=== PATIENT | male | born 1940 | race Caucasian/White ===

== ENCOUNTER 2024-02-25 10:54 | Inpatient (IN) | payer MEDICARE, SELFPAY ==
[2024-02-25] VITALS (24 sets, daily range): BP systolic 77–160; BP diastolic 49–90; PULSE 72–115; RESP 16–24; TEMP 36.1–36.6; O2SAT 94–100; BMI 22.2; BMI 21.2
--- NOTE | 2024-02-25 11:28 | XR_ITS ---
WS: [email or web address] Exam: XR foot LT min 3V* [id number] Date/Time of Exam: 02/25/2024 11:43 AM Reason For Exam: infection - osteomyelitis The second through the fifth toes have been amputated. There has been amputation of the distal fifth metatarsal. Extensive bone destruction involving the distal second third and fourth metatarsals and a lso most likely the distal first metatarsal. There is demineralization of bone involving the phalange s of the great toe also suspicious for osteomyelitis. Extensive soft tissue gas about the foot sugges t infection with gas-forming bacteria. Soft tissue swelling of the foot. Bandaging material noted abo ut the foot. XR/XR foot LT min 3V* [id number] IMPRESSION: 1. Osseous destruction involving the first ray as well as the distal second thi rd and fourth metatarsals almost surely representing acute osteomyelitis. There are also multiple pockets of gas in the soft tissues of the foot with soft tis wanda edema suggesting infection by gas-forming bacteria. Amputations of the foot as detailed above.
--- NOTE | 2024-02-25 11:31 | XR_ITS ---
WS: [email or web address] Exam: XR chest 1V portable [id number] Date/Time of Exam: 02/25/2024 11:43 AM Reason For Exam: dyspnea/cough No priors. The lungs are clear and fully expanded. Normal cardiomediastinal silhouette. No pleural effusions. He aled LEFT clavicle fracture. XR/XR chest 1V portable [id number] IMPRESSION: 1. No acute cardiopulmonary finding.
--- NOTE | 2024-02-25 11:48 | ECG_ITS ---
[employer] Test Date: 2024-02-25 Pat Name: Jett Tom Department: Room: 268 Gender: Male Payroll Services Analyst: : 1940 Requested By: Donte Arndt Order Number: [id number] Kaden MD: Larry Oquendo M.D. Measurements Intervals [place] Rate: 102 P: 85 NV: 173 QRS: -57 QRSD: 123 T: 88 QT: 374 QTc: 489 Interpretive Statements SINUS TACHYCARDIA POSSIBLE RIGHT ATRIAL ENLARGEMENT [0.25mV P-WAVE] POSSIBLE LEFT ATRIAL ENLARGEMENT [-0.1mV P-WAVE IN V1/V2] POSSIBLE RIGHT VENTRICULAR CONDUCTION DELAY [RSR (QR) IN V1/V2] LEFT ANTERIOR FASCICULAR BLOCK [QRS AXIS <= -45, QR IN I, RS IN II] SEPTAL MYOCARDIAL INFARCTION , OF INDETERMINATE AGE [40+ ms Q WAVE IN V1/V2] No previous ECG available for comparison Electronically Signed On 02-26-2024 22:10:26 INSTRUCTIONAL ASSISTANT by Larry Oquendo M.D. [email or web address]
--- NOTE | 2024-02-25 12:34 | ED_ITS ---
HPI - Extremity Problem 2 General: Chief complaint: Extremity Injury, Lower Stated complaint: Left Foot problems Time Seen by Provider: 02/25/24 12:19 History of Present Illness: 84-year-old male presents to the emergen cy room with a foul-smelling left foot. He injured it several months ago became infected has not had any treatment. Overpowering the foul-smelling odor coming from the left foot there is a sock in place it was difficult to remove see description below. Patient denies any other symptoms at this time he denies abdominal pain or chest pain. He has chronic shortness of breath he is a lifelong smoker. He is mildly tachycardic no fever at the time of arrival. Associated symptoms: Deny chest pain, fever(s) or rash Related Data Home Medications Medication Instructions Recorded Confirmed No Known Home Medications 02/25/24 02/25/24 Allergies Allergy/AdvReac Type Severity Reaction Status Date / Time No Known Allergies Allergy Verified 02/25/24 11:14 Review of Systems 2 Const: Denies: fever(s) or chills Card: Denies: chest pain Resp: Denies: dyspnea GI: Denies: abdominal pain : Denies: dysuria, urinary frequency or urinary urgency Musc: Reports: other (Infected left foot with drainage); Denies: neck pain or back pain Skin/Breast: Denies: rash Physical Exam 2 Const: COMMON NORMALS: no acute distress GENERAL APPEARANCE: cooperative and comfortable ORIENTATION/CONSCIOUSNESS: Yes awake, Yes oriented to person, Yes oriented to place and Yes oriented to time HENMT: COMMON NORMALS: normocephalic, atraumatic and hearing grossly normal bilaterally HEAD & SCALP: normocephalic and atraumatic Resp: COMMON NORMALS: normal respiratory effort, No retractions, No use of accessory muscles and clear to auscultation bilaterally AUSCULTATION: clear to auscultation bilaterally Cardio: COMMON NORMALS: regular rhythm and No murmurs present (Cardio) R ATE: tachycardic RHYTHM: regular rhythm GI: COMMON NORMALS: Soft to palpation and No hepatosplenomegaly present A USCULTATION: Yes normoactive bowel sounds PALPATION: Yes Soft to palpation, No Tenderness to palpation present (GI), No Guarding due to palpation present (GI) and Yes No hepatosplenomegaly present Extremity: OTHER: Extremely foul-smelling left foot sock removed portion of the sock was unable to be removed in his embedded in the tissue. Several of the digits are missing is difficult to tell it appear to have been previously amputated much of the forefoot is destroyed there is tunneling and gangrenous lesions exiting the medial arch and the heel. Erythema and induration spreading proximally foul- smelling purulent bloody drainage noted from the left foot. Neuro: SENSORIUM/ORIENTATION: Yes oriented to person, Yes oriented to place and Yes oriented to time Skin: COMMON NORMALS: no rashes or lesions noted GENERAL SKIN EXAM: no rashes or lesions noted Course 2 Vital Signs: Vital signs: Vital Signs Temperature 97.0 F L 02/25/24 13:52 Pulse Rate 100 02/25/24 13:52 Respiratory Rate 18 02/25/24 13:52 Blood Pressure 160/90 02/25/24 13:52 Pulse Oximetry 100 02/25/24 13:52 Oxygen Delivery Me thod Room Air 02/25/24 13:52 MDM - Extremity (Nontraumatic) Medical Decision Making 84-year-old male presents emergency room as a septic. Patient has severely gangrenous foot extending throughout the entire foot with gas in the subcu space. There is purulent foul-smelling drainage from the foot patient is septic with lactic acid of 6.5 elevated white count. Glucose is elevated as well. Ketones negative ABG does not show acidosis there is a metabolic anion gap but I believe that is due to sepsis. Antibiotics initiated fluids given cultures done discussed with hospitalist will admit. Dr. Hyman has been consulted he is taking patient directly to surgery for amputation Lab Data I reviewed the patient's lab results. 02/25/24 12:33 02/25/24 12:33 Radiology Impressions Foot X-Ray 02/25/24 11:28 IMPRESSION: 1. Osseous destruction involving the first ray as well as the distal second third and fourth metatarsals almost surely representing acute osteomyelitis. There are also multiple pockets of gas in the soft tissues of the foot with soft tissue edema suggesting infection by gas-forming bacteria. Amputations of the foot as detailed above. Chest X-Ray 02/25/24 11:31 IMPRESSION: 1. No acute cardiopulmonary finding. Tibia/Fibula X-Ray 02/25/24 12:52 IMPRESSION: 1. Negative LEFT tibia and fibula. Laboratory Results WBC 12.38 10^3/uL (3.29-11.43) H 02/25/24 12:33 RBC 4.65 10^6/uL (3.85-5.65) 02/25/24 12:33 Hgb 12.50 g/dL (11.27-16.99) 02/25/24 12:33 Hct 39.4 % (37-53) 02/25/24 12:33 MCV 84.7 fl (82-101) 02/25/24 12:33 MCH 26.9 pg (27-33) L 02/25/24 12:33 MCHC 31.7 g/dL (30-55) 02/25/24 12:33 RDW 14.8 % (12.1-15.1) 02/25/24 12:33 Plt Count 339 10^3/cmm (157-399) 02/25/24 12:33 MPV 9.0 fL (7.4-10.4) 02/25/24 12:33 Neut % (Auto) 88.6 % 02/25/24 12:33 Lymph % (Auto) 5.1 % 02/25/24 12:33 Walton % (Auto) 4.0 % 02/25/24 12:33 Eos % (Auto) 0.2 % 02/25/24 12:33 Baso % (Auto) 0.2 % 02/25/24 12:33 Neut # (Auto) 10.96 10^3/uL (1.8-7.7) H 02/25/24 12:33 Lymph # (Auto) 0.6 10^3/uL (0.8-4.8) L 02/25/24 12:33 Walton # (Auto) 0.5 10^3/uL (0.2-0.9) 02/25/24 12:33 Eos # (Auto) 0.0 10^3/uL (0.0-0.8) 02/25/24 12:33 Baso # (Auto) 0.0 10^3/uL (0.0-0.1) 02/25/24 12:33 Nucleated RBC % (auto) 0 % 02/25/24 12:33 Nucleated RBCs # 0.0 /100WBC 02/25/24 12:33 ESR 47 mm/hr (0-10) H 02/25/24 12:33 Specimen Type Arterial 02/25/24 13:20 Sample Site Radial, right 02/25/24 13:20 ABG pH 7.46 (7.35-7.45) H 02/25/24 13:20 ABG pCO2 29.6 mmHg (35-45) L 02/25/24 13:20 ABG pO2 111.0 mmHg (80.0-100.0) H 02/25/24 13:20 ABG PO2/FiO2 Ratio 528 02/25/24 13:20 ABG HCO3 21.0 mmol/L (22-26) L 02/25/24 13:20 ABG O2 Saturation 98.8 02/25/24 13:20 ABG Base Excess -1.8 mmol/L (-2.0-2.0) 02/25/24 13:20 Ra Test Pos 02/25/24 13:20 A-a O2 Gradient 0.2 mmHg (5-10) L 02/25/24 13:20 Hematocrit 41.0 % (42-52) L 02/25/24 13:20 Hgb O2 Saturation 97.7 % (95-100) 02/25/24 13:20 Carboxyhemoglobin 0.9 %THgb (0.4-20.1) 02/25/24 13:20 Methemoglobin 0.2 % (0.4-1.5) L 02/25/24 13:20 Total Hemoglobin 13.4 g/dL (14-18) L 02/25/24 13:20 Sodium 133.0 mmol/L (131-143) 02/25/24 13:20 Potassium 3.8 mmol/L (3.5-5.0) 02/25/24 13:20 Glucose 233.0 mg/dL (70-115) H 02/25/24 13:20 Ionized Calcium 1.2 mmol/L (1.1-1.4) 02/25/24 13:20 O2 Delivery Device Room air 02/25/24 13:20 FiO2 21.0 % 02/25/24 13:20 Booster Pump Operator ID glc 02/25/24 13:20 Sodium 130 mmol/L (136-145) L 02/25/24 12:33 Potassium 4.8 mmol/L (3.5-5.1) 02/25/24 12:33 Chloride 88 mmol/L (98-107) L 02/25/24 12:33 Carbon Dioxide 20 mmol/L (22-29) L 02/25/24 12:33 Anion Gap 26.8 (5-19) H 02/25/24 12:33 BUN 38 mg/dL (8-23) H 02/25/24 12:33 Creatinine 1.2 mg/dL (0.7-1.2) 02/25/24 12:33 GFR Calculation Not Reportable 02/25/24 12:33 Glucose 266 mg/dL (65-115) H 02/25/24 12:33 Calculated Osmolality 288 mOsm/kg (285-295) 02/25/24 12:33 Lactic Acid 6.5 mmol/L (0.5-2.2) H* 02/25/24 12:33 Calcium 10.1 mg/dL (8.5-10.5) 02/25/24 12:33 Total Bilirubin 1.0 mg/dL (0.15-1.2) 02/25/24 12:33 AST 8 U/L (0-40) 02/25/24 12:33 ALT 6 U/L (0-41) 02/25/24 12:33 Alkaline Phosphatase 126 U/L (40-130) 02/25/24 12:33 Creatine Kinase 23 U/L (39-308) L 02/25/24 12:33 C-Reactive Protein 155.8 mg/L (0.0-4.9) H 02/25/24 12:33 Total Protein 8.1 g/dL (6.6-8.7) 02/25/24 12:33 Albumin 3.5 g/dL (3.5-5.2) 02/25/24 12:33 Globulin 4.6 g/dL (1.3-4.6) 02/25/24 12:33 Lipase 12 U/L (13-60) L 02/25/24 12:33 Procalcitonin 0.32 ng/mL (0-0.5) 02/25/24 12:33 TSH 2.17 uIU/mL (0.27-4.20) 02/25/24 12:33 Serum Ketones Negative (Negative) 02/25/24 12:33 All radiology interpretation(s) finalized by discharge Discharge Plan Discharge Patient Disposition: Admitted As Inpatient Clinical Impression: Gangrene of left foot, Sepsis Condition: Stable Coding Level of Care Code ED Commercial Hvac Technician for Valentin Coronel
[2024-02-25 12:46] LABS: Basophils % 0.2 %; Eosinophils % 0.2 %; Hematocrit 39.4 % (37-53); Lymphocytes # 0.6 10^3/uL (0.8-4.8); Lymphocytes % 5.1 %; Mean Corpuscular HGB Conc 31.7 g/dL (30-55); Mean Corpuscular Hemoglobin 26.9 pg (27-33); Mean Corpuscular Volume 84.7 fl (82-101); Monocytes # 0.5 10^3/uL (0.2-0.9); Neutrophils # 10.96 10^3/uL (1.8-7.7); Neutrophils % 88.6 %; Nucleated Red Blood Cells % 0 %; Platelet Count 339 10^3/cmm (157-399); Red Blood Count 4.65 10^6/uL (3.85-5.65); Red Cell Distribution Width 14.8 % (12.1-15.1); White Blood Count 12.38 10^3/uL (3.29-11.43)
--- NOTE | 2024-02-25 12:52 | XR_ITS ---
WS: [id number] Exam: XR tibia fibula LT 2V [id number] Date/Time of Exam: 02/25/2024 1:10 PM Reason For Exam: osteomyelitis No fracture. No sign of bone destruction. Soft tissues are unremarkable. XR/XR tibia fibula LT 2V [id number] IMPRESSION: 1. Negative LEFT tibia and fibula.
[2024-02-25 13:01] LABS: Erythrocyte Sedimentation Rate 47 mm/hr (0-10)
[2024-02-25 13:04] LABS: Alanine Aminotransferase 6 U/L (0-41); Albumin Level 3.5 g/dL (3.5-5.2); Alkaline Phosphatase 126 U/L (40-130); Anion Gap 26.8 (5-19); Aspartate Amino Transferase 8 U/L (0-40); Blood Urea Nitrogen 38 mg/dL (8-23); C Reactive Protein 155.8 mg/L (0.0-4.9); Calcium 10.1 mg/dL (8.5-10.5); Carbon Dioxide 20 mmol/L (22-29); Chloride 88 mmol/L (98-107); Creatine Phosphokinase 23 U/L (39-308); Creatinine Clr Calc Pharmacy 43.9189; Globulin 4.6 g/dL (1.3-4.6); Glucose 266 mg/dL (65-115); Lipase 12 U/L (13-60); Osmolality Calculated 288 mOsm/kg (285-295); Potassium 4.8 mmol/L (3.5-5.1); Sodium 130 mmol/L (136-145); Total Protein 8.1 g/dL (6.6-8.7)
[2024-02-25 13:08] LABS: Lactic Sepsis W/Reflex 6.5 mmol/L (0.5-2.2)
[2024-02-25] MEDS: linezolid premix 600 MG/300 ML PREMIX 300 MG IV (13:23)
[2024-02-25] MEDS: piperacillin-tazobactam 3.375 GM in sodium chloride 0.9% (plus) 50 ML IV ×2 (13:24→21:37)
[2024-02-25] MEDS: sodium chloride 0.9% 1,932.3 ML 1932.3 ML IV (13:24)
[2024-02-25 13:32] LABS: ABG PCO2 29.6 mmHg (35-45); ABG PH Result 7.46 (7.35-7.45); Alveolar-Arterial Oxygen Gradi 0.2 mmHg (5-10); Base Excess ABG -1.8 mmol/L (-2.0-2.0); Blood Gas Allen Test Pos; Blood Gas Operator Identificat glc; Blood Gas Sample Site Radial, right; Blood Gas Sample Type Arterial; Carboxyhemoglobin 0.9 %THgb (0.4-20.1); HGB O2 Sat 97.7 % (95-100); Ionized Calcium Level - ABG 1.2 mmol/L (1.1-1.4); Methemoglobin 0.2 % (0.4-1.5); Oxygen Device ROOM AIR; Oxygen Saturation ABG 98.8; PO2 FiO2 Ratio Arterial Blood 528; Potassium Level - ABG 3.8 mmol/L (3.5-5.0); Total Hemoglobin 13.4 g/dL (14-18)
--- NOTE | 2024-02-25 13:33 | P.CONIM_ITS ---
Providers/Reason For Consult 2 Consulting Physician/Specialty*: General Surgery Reason for Consult*: Gangrene of the left foot History of Present Illness History of Present Illness Jett Tom is a 84 year old male who has history of left foot trauma many months ago, he has not received any care and presents today with a gangrenous left foot. An x-ray of the foot was done and showed evidence of gas in the tissue and up to the level of the heel. I was consulted as patient will likely benefit from a below the knee amputation. Patient is very poor historian, does not remember having any history and does not take any medications. Review of Systems 2 General: Reports: 10 or more systems reviewed and unremarkable except in HPI and below Medications/Allergies Home Medications Medication Instructions Recorded Confirmed Last Taken Type No Known Home Medications 02/25/24 02/25/24 Unknown History Allergies Allergy/AdvReac Type Severity Reaction Status Date / Time No Known Allergies Allergy Verified 02/25/24 11:14 Current Medications Generic Name Dose Route Start Last Admin Trade Name Freq PRN Reason Stop Dose Admin Linezolid 600 mg in 300 mls @ 300 mls/hr 02/25/24 12:44 02/25/24 13:23 Zyvox Premix IV 02/25/24 13:43 300 mls/hr ONCE ONE Administration Protocol Sodium Chloride 1,932.3 mls @ 1,932.3 mls/hr 02/25/24 13:10 02/25/24 13:24 Sodium Chloride 0.9% 30 ml/kg infuse over 1 hr (1932.3 ml) 02/25/24 14:09 1,932.3 mls/hr IV Administration .Q1H ONE Vitals/I&O/Wt Last Vital Signs Pulse 110 H 02/25/24 12:30 Resp 20 H 02/25/24 12:30 BP 123/75 02/25/24 12:30 Pulse Ox 98 02/25/24 12:30 O2 Del Method Room Air 02/25/24 11:02 Weight last 48 hrs Weight 142 lb Physical Exam 2 Narrative: General : Patient is well developed , no acute distress, oriented x3 Head : Normal cephalic, a-traumatic. Nose : Mucous membranes are without erythema. Lungs : Equal chest rise bilaterally, no use of accessory muscles, trachea is midline. CV : Rate and rhythm are normal. Abdomen : Soft, ND, NT, no g/r/m Extremities : Left lower extremity, the level of the foot very foul-smelling tissue, there has been tissue destruction at the level of the sole of the foot and also some necrotic changes at the level of the heel, no palpable pulses at the level of the foot that I could identified, the rest of the leg appears healthy. Back : non-tender to palpation, no CVA tenderness. Data 02/25/24 12:33 02/25/24 12:33 Micro: Microbiology 02/25/24 13:17 Blood Culture - Preliminary Blood SPECIMEN COLLECTED 02/25/24 12: Blood Culture - Preliminary Blood SPECIMEN COLLECTED A&P Assessment and plan (1) Gangrene of left foot: Plan After complete history, physical examination and review of all available clinical data the following is my assessment. This 84-year-old male with a left foot gangrene likely due to remote history of trauma that was left untreated. Patient is currently tachycardic and with a white count of 12.3. In addition to that his lactic acid is elevated as well as his glucose recent concern of possible DKA on top of his current left foot infection. Patient will require to proceed directly to the OR for a ankle disarticulation, possible guillotine potation below the knee and then he will require revision to a 4 mile amputation in 48 to 72 hours once infection has resolved. I discussed all recent benefits with the patient occluding the risks of needing for additional amputations, flap necrosis, poor functional outcome, abscess formation, infection of the stump, poor vascularity of the stump leading to necrosis, patient shows understanding agrees to proceed. Coding Level of Care Code 33081 Diagnoses Gangrene of left foot I96
[2024-02-25 13:39] LABS: Ketone (Acetest) Serum Negative (Negative)
--- NOTE | 2024-02-25 13:49 | PM.HP ---
Providers/Chief Complaint Chief Complaint: Left Foot problems History of Present Illness Jett Tom is a 84 year old male with no segment past medical history, has not seen a physician in many years was brought into the ER today by his neighbor because of foul-smelling discharge coming from his left foot. As per the patient he had a trauma few months ago but never seek any care. Started having more foul-smelling bloody discharge coming today so came to the ER. Does not complain of any pain. In the ER x-ray was done which was concerning for gas gangrene hand surgery was consulted he underwent disarticulation Of left ankle. Seen postoperatively laying comfortably in bed awake and alert saturating well on room air. Review of Systems General: Reports: 10 or more systems reviewed and unremarkable except in HPI and below Const: Denies: fever(s), chills, body aches, change in appetite, change in weight, malaise, night sweats, diaphoresis, change in sleep pattern, daytime sleepiness or snoring Eyes: Denies: change in vision, blurry vision, photophobia, eye discomfort or eye discharge ENMT: Denies: throat pain, enlarged tonsils, hoarseness, mouth pain, oral sores, dry mouth, tinnitus, nasal congestion or post nasal drip Card: Denies: chest pain, palpitations, irregular heart rhythm, edema, swelling of feet/ankles, lightheadedness, syncope, pre-syncope, dyspnea on exertion, orthopnea, leg pain with exertion or acrocyanosis Resp: Denies: dyspnea, productive cough, non-productive cough, wheezing, stridor, pain on inspiration, change in phlegm color, hemoptysis or chest congestion GI: Denies: abdominal pain, nausea, vomiting, hematemesis, coffee ground emesis, dysphagia, heartburn, diarrhea, constipation, bloating, GI cramping, change in bowel habits, pain on defecation, hematochezia or melena : Denies: flank pain, difficulty urinating, dysuria, urinary frequency, urinary urgency, urinary hesitancy, urinary dribbling, difficulty starting urination, change in urine stream, nocturia or hematuria Musc: Denies: neck pain, back pain, extremity pain, joint pain, joint swelling, joint redness, joint stiffness or limited range of motion Neuro: Denies: headache(s), numbness in extremities, weakness in extremities, sensory changes, lack of coordination, difficulty walking, frequent falls, dizziness, vertigo, confusion, Slurred speech present, difficulty communicating thoughts or seizure-like activity Psych: Denies: anxiety, depression, mood swings, panic attacks, hopelessness or irritability Endo: Denies: polyuria, polydipsia, tired all the time, cold intolerance, excessive sweating, flushing or heat intolerance Cesario/Lymph: Denies: easy bruising or easy bleeding All/Imm: Denies: tongue swelling, facial swelling or acute wheezing Medications/Allergies Home Medications Medication Instructions Recorded Confirmed Last Taken Type No Known Home Medications 02/25/24 02/25/24 Unknown History Allergies Allergy/AdvReac Type Severity Reaction Status Date / Time No Known Allergies Allergy Verified 02/25/24 11:14 PFSH Acute PFSH: Medical History (Updated 02/25/24 @ 16:07 by Osile Santos MD) Type 2 diabetes mellitus Vitals/I&O/Wt Last Vital Signs Pulse 96 02/25/24 13:34 Resp 24 H 02/25/24 13:30 BP 144/90 02/25/24 13:34 Pulse Ox 99 02/25/24 13:34 O2 Del Method Room Air 02/25/24 11:02 Weight last 48 hrs Weight 64.41 kg Physical Exam Narrative: General: No acute distress, AO x3 HEENT: PERRLA, pupils bilaterally equal and reactive Chest: Normal vesicular breath sounds, no added sounds, equal good air entry bilaterally CVS: S1-S2 regular, no murmurs, no tachycardia, no gallops, no rubs Abdomen: Soft, nontender, no organomegaly, bowel sounds present Neuro: No focal deficits, no facial deformity, AO x3, power 5/5 in all limbs Extremity: Surgical bandage after amputation of left foot. Bilateral pulses faint to touch, extremities cold Quick SOFA Score: Respiratory Rate: 18 Blood Pressure: 94/49 Susie Coma Scale: 15 qSOFA Score: 1 If qSOFA score 2 or greater, continue: PaO2/FiO2 Ratio (mmHg): 528 Blood Pressure Mean: 64 Bilirubin (mg/dl): 1.0 Platelets (x10?/ml): 339 Creatinine (mg/dl): 1.2 SOFA Score: 2 Evaluation: Current stage of sepsis: sepsis Sepsis stage criteria used: [facility] Sep-1 and Sepsis-3 Crystalloid fluids: 30 mL/kg crystalloid fluids ordered and initiated within 3 hours Blood cultures ordered: Yes Possible source: skin/soft tissue Focused Exam: Vital signs: Temp Pulse Resp BP Pulse Ox O2 Del Method 02/25/24 17:02 Room Air 02/25/24 16:29 97.6 F 84 18 129/81 99 Room Air 02/25/24 16:10 86 18 134/80 98 Room Air 02/25/24 15:50 82 18 109/60 99 Room Air 02/25/24 15:45 85 18 103/59 100 Room Air 02/25/24 15:40 86 18 94/49 94 Room Air 02/25/24 15:35 90 18 103/52 98 Room Air 02/25/24 15:28 97.2 F L 88 18 107/69 100 Room Air 02/25/24 13:52 97.0 F L 100 18 160/90 100 Room Air 02/25/24 13:34 96 144/90 99 02/25/24 13:30 92 24 H 125/76 02/25/24 13:00 100 17 125/76 99 02/25/24 12:30 110 H 20 H 123/75 98 02/25/24 12:00 100 123/75 99 02/25/24 11:50 106 H 19 H 106/77 100 02/25/24 11:02 115 H 77/55 100 Room Air Date exam was performed: 02/25/24 Time exam was performed: 15:40 Sepsis Screen No Definite Risk 02/25/24 13:30 Respiratory Rate 18 breaths/min (12 - 18) 02/25/24 16:29 Blood Pressure 129/81 mmHg 02/25/24 16:29 Susie Coma Scale Score 15 02/25/24 17:02 Quick SOFA Score 1 02/25/24 13:30 SOFA Score: ABG PO2/FiO2 Ratio 528 02/25/24 13:20 Susie Coma Scale Score 15 02/25/24 17:02 Blood Pressure Mean 97 mmHg 02/25/24 16:29 Total Bilirubin 1.0 mg/dL (0.15-1.2) 02/25/24 12:33 Platelet Count 339 10^3/cmm (157-399) 02/25/24 12:33 Creatinine 1.2 mg/dL (0.7-1.2) 02/25/24 12:33 Data 02/25/24 12:33 02/25/24 12:33 Micro: Microbiology 02/25/24 13:17 Blood Culture - Preliminary Blood SPECIMEN COLLECTED 02/25/24 12:33 Blood Culture - Preliminary Blood SPECIMEN COLLECTED A&P Assessment and plan (1) Acute osteomyelitis of left foot: Appreciated on foot x-ray. ESR CRP elevated. Surgery consulted for possible BKA versus ankle disarticulation. Antibiotic as below. (2) Sepsis: SIRS: Tachycardic, Febrile, Leukocytosis Source: Osteomyelitis with concern for gas gangrene of left foot End organ damage: Metabolic acidosis Lactic acid elevated Patient did receive sepsis bolus. Will continue with normal saline at 50 cc/h. Monitor blood pressures. Keep mean artery pressure 65 mmHg. Check blood culture, urine culture, MRSA swab, procalcitonin, bacterial antigen. Empirically started on IV Zosyn and linezolid for now. Will discontinue linezolid if MRSA swab negative. (3) Gangrene of left foot: Treatment as above. Could be in setting of uncontrolled diabetes. Will check lower limb arterial duplex to rule out PAD. (4) Type 2 diabetes mellitus: Anion gap metabolic acidosis. Ketones negative. ABG normal. No concerns for DKA for now. Check A1c. Sliding scale at moderate dose protocol. Does not seem to be on any medication as an outpatient. Most likely will need OHA's versus insulin depending on the requirement during hospitalization. (5) High anion gap metabolic acidosis: Most likely in setting of lactic acidosis. Continue to monitor. Fluid of as above. (6) Elevated lactic acid level: Plan Full code N.p.o. for now, carb consistent diet postoperatively Protonix for PUD prophylaxis Heparin 5000 Q12 hourly for DVT prophylaxis Attestations Medical Necessity Statement*: Admission for more than 2 midnights for management of sepsis in setting of osteomyelitis of foot with concerns for gangrene, hindgut metabolic acidosis with elevated lactate in a patient with type 2 diabetes mellitus requiring amputation Diagnoses Acute osteomyelitis of left foot M86.172 Sepsis A41.9 Gangrene of left foot I96 Type 2 diabetes mellitus E11.9 High anion gap metabolic acidosis E87.29 Elevated lactic acid level R79.89
--- NOTE | 2024-02-25 13:58 | P.ANESASSM_ITS ---
Pre-Anesthetic Assessment Height/Weight: Height 5 ft 7 in Weight 142 lb Temp Pulse Resp BP Pulse Ox O2 Del Method 97.0 F L 100 18 160/90 100 Room Air 02/25/24 13:52 02/25/24 13:52 02/25/24 13:52 02/25/24 13:52 02/25/24 13:52 02/25/24 13:52 Preop Diagnosis: Gangrene of the foot Operation Date: 02/25/24 14:55 Proposed Procedures p Amputation Lower Extremity(Left) - Ulises Hyman MD Was Beta Barney taken within 24 hours: N/A Was Clonidine taken within 24 hours: N/A Last intake: Intake Last Liquid Date 02/24/24 Last Liquid Time 19:00 Last Solid Date 02/24/24 Last Solid Time 19:00 Social Tobacco and No alcohol Exam alert, oriented x 3 and regular rate & rhythm Decreased breath sounds bilaterally Airway Submandibular: within normal limits Cervical ROM: within normal limits Mallampati: Class II Dentition: other (Edentulous) Anesthetic Plan ASA status: 3 Anesthesia: General Other: No prior issues with anesthesia NPO since yesterday evening Patient is of poor health, does not see any physicians. Lives at home alone. Gas Green Green of the foot noted, WBC 12.3 Other labs were reviewed, NA 130, K+ 4.8, lactic acid 6.5 Patient is currently afebrile, BP 160/90 Patient does not take any medications at baseline but does note issues with breathing. Current smoker. Patient states that he is able to perform ADLs but has been limited secondary to foot pain Plan for GETA Medications/Allergies Home Medications Medication Instructions Recorded Confirmed Last Taken Type No Known Home Medications 02/25/24 02/25/24 Unknown History Allergies Allergy/AdvReac Type Severity Reaction Status Date / Time No Known Allergies Allergy Verified 02/25/24 11:14 Current Medications Generic Name Dose Route Start Last Admin Trade Name Freq PRN Reason Stop Dose Admin Sodium Chloride 1,932.3 mls @ 1,932.3 mls/hr 02/25/24 13:10 02/25/24 13:24 Sodium Chloride 0.9% 30 ml/kg infuse over 1 hr (1932.3 ml) 02/25/24 14:09 1,932.3 mls/hr IV Administration .Q1H ONE Data Anesthesia 02/25/24 12:33 02/25/24 12:33 Short CBC 02/25/24 Range/Units 12:33 WBC 12.38 H (3.29-11.43) 10^3/uL Hgb 12.50 (11.27-16.99) g/dL Hct 39.4 (37-53) % MCV 84.7 (82-101) fl Plt Count 339 (157-399) 10^3/cmm Neut % (Auto) 88.6 % Neut # (Auto) 10.96 H (1.8-7.7) 10^3/uL BMP 02/25/24 12:33 Sodium 130 L Potassium 4.8 Chloride 88 L Carbon Dioxide 20 L BUN 38 H Creatinine 1.2 Glucose 266 H Calcium 10.1 Cardiac Enzymes 02/25/24 Range/Units 12:33 Creatine Kinase 23 L (39-308) U/L Liver Function 02/25/24 Range/Units 12:33 Total Bilirubin 1.0 (0.15-1.2) mg/dL AST 8 (0-40) U/L ALT 6 (0-41) U/L Alkaline Phosphatase 126 (40-130) U/L Albumin 3.5 (3.5-5.2) g/dL Coags 02/25/24 12:33 ESR 47 H C-Reactive Protein 155.8 H ABG 02/25/24 13:20 Specimen Type Arterial Sample Site Radial, right ABG pH 7.46 H ABG pCO2 29.6 L ABG pO2 111.0 H ABG PO2/FiO2 Ratio 528 ABG HCO3 21.0 L ABG O2 Saturation 98.8 ABG Base Excess -1.8 A-a O2 Gradient 0.2 L O2 Delivery Device Room air FiO2 21.0 Microbiology 02/25/24 13:17 Blood Culture - Preliminary Blood SPECIMEN COLLECTED 02/25/24 12:33 Blood Culture - Preliminary Blood SPECIMEN COLLECTED Cardiac Studies: 2 No Data to Display
[2024-02-25 14:04] LABS: Procalcitonin 0.32 ng/mL (0-0.5); Thyroid Stimulating Hormone 2.17 uIU/mL (0.27-4.20)
[2024-02-25 14:16] LABS: Iron 73 ug/dL (59-158); Percent Saturation 40.7 % (20-50); Total Iron Binding Capacity 179 mcg/dl; Unsaturated Iron Binding 106 ug/dL (112-347)
[2024-02-25 14:28] LABS: Reflex Lactate Order REFLEX LACTIC ORDERD
[2024-02-25 14:47] LABS: Estmated Average Glucose 151; Hemoglobin A1C 6.9 % (4.0-6.0)
--- NOTE | 2024-02-25 15:27 | P.OP_ITS ---
Operative Report Date of procedure: February 25, 2024 Pre-op diagnosis: Left foot gangrene Post-op diagnosis: Same Post-op findings: Left foot gangrene involved being the forefoot and the plantar aspect of the foot as well as the heel, no infection noted tracking up into the leg. 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 After discussion of all risk benefits documented my preop note with side to proceed to the OR for a left foot amputation Procedure: Patient was brought into the OR, he was placed in a supine position. General anesthesia was given. The left lower extremity was prepped and draped in usual sterile fashion. A timeout was conducted. A tourniquet was insufflated, I then proceeded to make an incision with a 10 blade at the level of the ankle articulation, the incision was made circumferentially around the ankle articulation and then with significant traction on the foot I used the same blade to completely transect all the ligaments and the capsule of the joint of the left ankle, I finally transected the Achilles tendon liberating the speci men, the left foot was then passed for pathology. Hemostasis was obtained and major vascular bundles were ligated with #3-0 Vicryl. I then desufflated the tourniquet, the total tourniquet time was about 7 minutes. After desufflation minimal additional oozing was noted and was controlled with electrocautery. The wound was then irrigated with saline, no residual purulence or devitalized tissue was noted above the level of the ankle joint. The wound was packed with Betadine soaked gauze and a compressive dressing was applied using Coban. At the end of the procedure all counts were correct, the patient tolerated well the procedure was transferred to the PACU in stable condition.
--- NOTE | 2024-02-25 15:38 | PC.NURSE ---
Tourniquet Tourniquet up to 250 at 1450 Down at 1457
[2024-02-25] MEDS: heparin 5,000 unit/mL INJ 1 mL 5000 UNIT SUBCUT (17:34)
[2024-02-25] MEDS: pantoprazole 40 mg SDV IVP (17:34)
[2024-02-25] MEDS: ondansetron 2 mg/ML SDV 2 mL 4 MG IVP (17:34)
[2024-02-25] MEDS: sodium chloride 0.9% 1,000 ML 75 ML IV (17:35)
--- NOTE | 2024-02-25 17:48 | USR_ITS ---
PROCEDURE INFORMATION: Exam: US Duplex Bilateral Lower Extremity Arteries Exam date and time: 02/25/2024 6:12 PM Age: 84 years old Clinical indication: Pain; Leg, lower; Bilateral; Prior surgery; Surgery date: Post-operative (0-2 days); Surgery type: Lt foot amputation; Additional info: Possible pad TECHNIQUE: Imaging protocol: Real-time ultrasound scan of the arteries of the bilateral lower extremities with 2-D sarkar scale, color Doppler flow and spectral waveform analysis. Images documented and saved. COMPARISON: CR XR tibia fibula LT 2V [id number] 02/25/2024 1:17 PM FINDINGS: Right common femoral artery: No occlusion or significant stenosis. Normal waveform. Right superficial femoral artery: No occlusion or significant stenosis. Normal waveform. Right popliteal artery: No occlusion or significant stenosis. Normal waveform. Right calf/foot arteries: No occlusion. Mild waveform dampening in the right posterior tibial artery. MADELINE on the right is mildly diminished at 0.7. Left common femoral artery: No occlusion or significant stenosis. Normal waveform. Left superficial femoral artery: No occlusion or significant stenosis. Normal waveform. Left popliteal artery: No occlusion or significant stenosis. Normal waveform. Left calf/foot arteries: Status post amputation. US/[place] [id number] IMPRESSION: 1. No evidence of occlusion. 2. Mild waveform dampening in the right posterior tibial artery with diminished MADELINE.
[2024-02-25 17:56] LABS: Lactic Acid level (Lactate) 3.1 mmol/L (0.5-2.2)
[2024-02-25 18:11] LABS: Vitamin B12 400 pg/mL (232-1245)
[2024-02-25 18:13] LABS: Glucose Point of Care 182 mg/dL (70-110)
[2024-02-25] MEDS: insulin lispro 100 unit/1 mL SUBCUT ×2 (18:35→21:37)
[2024-02-25 21:25] LABS: MRSA PCR OZH (swab) NOT DETECTED (Negative)
[2024-02-25 22:00] LABS: Blood Urea Nitrogen 34 mg/dL (8-23); Chloride 102 mmol/L (98-107); Creatinine Clr Calc Pharmacy 47.0213; Glucose 83 mg/dL (65-115); Osmolality Calculated 291 mOsm/kg (285-295); Potassium 4.2 mmol/L (3.5-5.1); Sodium 137 mmol/L (136-145)
[2024-02-25 23:08] LABS: Anion Gap 16.2 (5-19); Carbon Dioxide 23 mmol/L (22-29)
[2024-02-26] VITALS (11 sets, daily range): BP systolic 102–153; BP diastolic 57–77; PULSE 71–102; RESP 16–17; TEMP 36.3–36.7; O2SAT 98–100; BMI 22.6
[2024-02-26] MEDS: linezolid 600 mg Tablet PO ×2 (01:27→12:40)
[2024-02-26] MEDS: piperacillin-tazobactam 3.375 GM in sodium chloride 0.9% (plus) 50 ML IV ×3 (05:08→20:32)
[2024-02-26] MEDS: sodium chloride 0.9% 1,000 ML 75 ML IV (05:08)
[2024-02-26] MEDS: heparin 5,000 unit/mL INJ 1 mL 5000 UNIT SUBCUT ×2 (05:08→16:51)
[2024-02-26 06:26] LABS: Glucose Point of Care 136 mg/dL (70-110)
[2024-02-26 06:34] LABS: Basophils % 0.1 %; Eosinophils # 0.1 10^3/uL (0.0-0.8); Eosinophils % 1.7 %; Hematocrit 28.2 % (37-53); Lymphocytes # 1.2 10^3/uL (0.8-4.8); Lymphocytes % 17.2 %; Mean Corpuscular HGB Conc 31.2 g/dL (30-55); Mean Corpuscular Hemoglobin 26.6 pg (27-33); Mean Corpuscular Volume 85.2 fl (82-101); Mean Platelet Volume 9.6 fL (7.4-10.4); Monocytes # 0.4 10^3/uL (0.2-0.9); Monocytes % 5.4 %; Nucleated Red Blood Cells % 0 %; Platelet Count 195 10^3/cmm (157-399); Red Blood Count 3.31 10^6/uL (3.85-5.65); Red Cell Distribution Width 14.8 % (12.1-15.1); White Blood Count 7.03 10^3/uL (3.29-11.43)
[2024-02-26 06:52] LABS: Estmated Average Glucose 148; Hemoglobin A1C 6.8 % (4.0-6.0)
[2024-02-26 06:54] LABS: Alanine Aminotransferase < 5 U/L (0-41); Albumin Level 2.5 g/dL (3.5-5.2); Alkaline Phosphatase 84 U/L (40-130); Anion Gap 14.5 (5-19); Aspartate Amino Transferase 7 U/L (0-40); Blood Urea Nitrogen 31 mg/dL (8-23); Carbon Dioxide 24 mmol/L (22-29); Chloride 101 mmol/L (98-107); Creatinine Clr Calc Pharmacy 57.0319; Globulin 3.1 g/dL (1.3-4.6); Glucose 119 mg/dL (65-115); Magnesium 1.8 mg/dL (1.7-2.3); Osmolality Calculated 290 mOsm/kg (285-295); Phosphorus 2.4 mg/dL (2.5-4.5); Potassium 3.5 mmol/L (3.5-5.1); Sodium 136 mmol/L (136-145); Total Bilirubin 0.5 mg/dL (0.15-1.2); Total Protein 5.6 g/dL (6.6-8.7)
[2024-02-26 06:55] LABS: Chol HDL Ratio 4.36 mg/dL (1.0-5.00); Cholesterol 122 mg/dL (0-200); HDL Cholesterol 28 mg/dL (60-100); LDL Cholesterol Calculated 71 mg/dL (50-129); LDL HDL Ratio 2.54 RATIO (0.00-3.22); Triglycerides 113 mg/dL (0-150)
[2024-02-26 06:57] LABS: Procalcitonin 0.34 ng/mL (0-0.5)
[2024-02-26 07:11] LABS: Folate Level 2.1 ng/mL (4.5-32.2)
--- NOTE | 2024-02-26 07:27 | PC.NURSE ---
notified nurse of bp at 0715
--- NOTE | 2024-02-26 08:20 | PM.PN ---
Vitals/I&O/Wt Last Vital Signs Temp 97.8 F 02/26/24 00:00 Pulse 73 02/26/24 07:26 Resp 16 02/26/24 07:26 BP 152/73 02/26/24 07:26 Pulse Ox 100 02/26/24 07:26 O2 Del Method Room Air 02/26/24 07:26 02/25/24 02/26/24 02/26/24 22:59 06:59 14:59 Intake Total 3002.3 / 3002.3 916.25 / 3918.55 Output Total 210 / 210 375 / 585 Balance 2792.3 / 2792.3 541.25 / 3333.55 Weight last 48 hrs Weight 132 lb 9.6 oz Weight 135 lb 4.8 oz Weight 142 lb Data 02/26/24 05:51 02/26/24 05:51 Micro: Microbiology 02/25/24 13:17 Blood Culture - Preliminary Blood SPECIMEN COLLECTED 02/25/24 12:33 Blood Culture - Preliminary Blood SPECIMEN COLLECTED A&P Assessment and plan (1) Sepsis: (2) Acute osteomyelitis of left foot: (3) Gangrene of left foot: (4) Elevated lactic acid level: Plan 84-year-old male admitted with gangrene of the left foot, he is status post ankle disarticulation. Patient is doing well no significant pain. Stable vital signs. Left lower extremity dressing is clean and intact. Patient showing very good progression after amputation of the left foot. His white count has normalized, lactate level is trending down. The plan will be to continue IV antibiotics for another 48 hours before proceeding for a formal amputation. I have the patient scheduled for a revision of left below the knee amputation. This will be done on Thursday. In the interim patient is okay to have regular diet from my standpoint. Patient will require placement after surgery as he has very limited living conditions and lives alone. -Advance diet as tolerated -Pain control -IV antibiotics -Revision of the amputation is planned for Thursday -Placement per medical team Attestations Medical Necessity Statement*: Patient will require 48 to 72 hours of hospital stay for revision of amputation and for IV antibiotics. Coding Level of Care Code Acute Code for [facility] Diagnoses Sepsis A41.9 Acute osteomyelitis of left foot M86.172 Gangrene of left foot I96 Elevated lactic acid level R79.89
[2024-02-26 11:30] LABS: Glucose Point of Care 178 mg/dL (70-110)
[2024-02-26] MEDS: insulin lispro 100 unit/1 mL SUBCUT ×3 (12:40→20:58)
--- NOTE | 2024-02-26 15:30 | PM.PN ---
Subjective Subjective: No acute events overnight. Today morning patient seen laying comfortably in bed. Denies any nausea, vomiting, headache. Has remained hemodynamically stable and afebrile. Vitals/I&O/Wt Last Vital Signs Temp 98.0 F 02/26/24 12:00 Pulse 71 02/26/24 12:00 Resp 17 02/26/24 12:00 BP 151/76 02/26/24 12:00 Pulse Ox 98 02/26/24 12:00 O2 Del Method Room Air 02/26/24 12:00 02/26/24 02/26/24 02/26/24 06:59 14:59 22:59 Intake Total 916.25 / 3918.55 410 / 410 Output Total 375 / 585 Balance 541.25 / 3333.55 410 / 410 Weight last 48 hrs Weight 65.589 kg Weight 60.146 kg Weight 61.371 kg Weight 64.41 kg Physical Exam Narrative: General: No acute distress, AO x3 HEENT: PERRLA, pupils bilaterally equal and reactive Chest: Normal vesicular breath sounds, no added sounds, equal good air entry bilaterally CVS: S1-S2 regular, no murmurs, no tachycardia, no gallops, no rubs Abdomen: Soft, nontender, no organomegaly, bowel sounds present Neuro: No focal deficits, no facial deformity, AO x3, power 5/5 in all limbs Extremity: Surgical bandage after amputation of left foot. Bilateral pulses faint to touch, extremities cold Data 02/26/24 05:51 02/26/24 05:51 Micro: Microbiology 02/25/24 13:17 Blood Culture - Preliminary Blood NEGATIVE TO DATE 02/25/24 12:33 Blood Culture - Preliminary Blood NEGATIVE TO DATE A&P Assessment and plan (1) Acute osteomyelitis of left foot: Appreciated on foot x-ray. ESR CRP elevated. Surgery consulted for possible BKA versus ankle disarticulation. Antibiotic as below. (2) Sepsis: SIRS: Tachycardic, Febrile, Leukocytosis Source: Osteomyelitis with concern for gas gangrene of left foot End organ damage: Metabolic acidosis Lactic acid elevated Patient did receive sepsis bolus. Will continue with normal saline at 50 cc/h. Monitor blood pressures. Keep mean artery pressure 65 mmHg. Check blood culture, urine culture, MRSA swab, procalcitonin, bacterial antigen. Empirically started on IV Zosyn and linezolid for now. Will discontinue linezolid if MRSA swab negative. (3) Gangrene of left foot: Treatment as above. Could be in setting of uncontrolled diabetes. Will check lower limb arterial duplex to rule out PAD. (4) Type 2 diabetes mellitus: Anion gap metabolic acidosis. Ketones negative. ABG normal. No concerns for DKA for now. Check A1c. Sliding scale at moderate dose protocol. Does not seem to be on any medication as an outpatient. Most likely will need OHA's versus insulin depending on the requirement during hospitalization. (5) High anion gap metabolic acidosis: Most likely in setting of lactic acidosis. Continue to monitor. Fluid of as above. (6) Elevated lactic acid level: Plan Full code Carb consistent diet Protonix for PUD prophylaxis Heparin 5000 Q12 hourly for DVT prophylaxis Plan for the day: Continue with IV Zosyn. MRSA swab negative. Discontinue linezolid. Postoperative care, wound care as per surgical team. Plan for revision on amputation urgery on Thursday. Follow-up blood cultures. Urine analysis not currently available. Bacterial antigen not collected. Appreciate A1c. Monitor blood sugars. Currently stable. Continue with sliding scale. Arterial duplex within normal limits. Developing anemia today. Most likely combination of mild elevation along with postoperative changes. Do not have baseline. Continue to monitor. Appreciate iron panel. Concern for folic acid deficiency. Start on 1 mg twice daily. Goal blood pressure less than 140/90 mmHg. Blood pressure is elevated today. Continue to monitor. If remains elevated will plan to start on antihypertensive preferably losartan given history of type 2 diabetes mellitus. Repeat ESR, CRP along with lactate in AM. Plan for the day: Patient today states he would prefer to go to SNF for further rehabitation before going back home. Physical therapy evaluation. business strategy manager alerted. Attestations Medical Necessity Statement*: Requires further hospitalization for management of gas gangrene of the foot post amputation as patient requires further revision amputation, safe discharge planning Diagnoses Acute osteomyelitis of left foot M86.172 Sepsis A41.9 Gangrene of left foot I96 Type 2 diabetes mellitus E11.9 High anion gap metabolic acidosis E87.29 Elevated lactic acid level R79.89
[2024-02-26 16:11] LABS: Glucose Point of Care 162 mg/dL (70-110)
[2024-02-26] MEDS: pantoprazole 40 mg SDV IVP (16:52)
[2024-02-26] MEDS: folic acid 1 mg Tablet PO (17:56)
[2024-02-26 20:31] LABS: Glucose Point of Care 184 mg/dL (70-110)
[2024-02-27] VITALS (10 sets, daily range): BP systolic 105–146; BP diastolic 55–78; PULSE 70–79; RESP 15–18; TEMP 36.4–36.7; O2SAT 97–100
[2024-02-27 02:53] LABS: Basophils % 0.5 %; Eosinophils # 0.1 10^3/uL (0.0-0.8); Eosinophils % 1.6 %; Hematocrit 26.5 % (37-53); Lymphocytes # 1.3 10^3/uL (0.8-4.8); Lymphocytes % 22.4 %; Mean Corpuscular HGB Conc 30.9 g/dL (30-55); Mean Corpuscular Hemoglobin 26.1 pg (27-33); Mean Corpuscular Volume 84.4 fl (82-101); Mean Platelet Volume 9.2 fL (7.4-10.4); Monocytes # 0.3 10^3/uL (0.2-0.9); Monocytes % 5.9 %; Neutrophils # 3.86 10^3/uL (1.8-7.7); Neutrophils % 67.5 %; Nucleated Red Blood Cells % 0 %; Platelet Count 175 10^3/cmm (157-399); Red Blood Count 3.14 10^6/uL (3.85-5.65); Red Cell Distribution Width 14.8 % (12.1-15.1); White Blood Count 5.72 10^3/uL (3.29-11.43)
[2024-02-27 03:00] LABS: Erythrocyte Sedimentation Rate 28 mm/hr (0-10)
[2024-02-27 03:13] LABS: C Reactive Protein 47.1 mg/L (0.0-4.9); Lactic Sepsis W/Reflex 1.6 mmol/L (0.5-2.2)
[2024-02-27 03:20] LABS: Alanine Aminotransferase < 5 U/L (0-41)
[2024-02-27 03:37] LABS: Albumin Level 2.5 g/dL (3.5-5.2); Alkaline Phosphatase 87 U/L (40-130); Anion Gap 14.3 (5-19); Aspartate Amino Transferase 7 U/L (0-40); Blood Urea Nitrogen 24 mg/dL (8-23); Calcium 7.6 mg/dL (8.5-10.5); Carbon Dioxide 22 mmol/L (22-29); Chloride 103 mmol/L (98-107); Creatinine Clr Calc Pharmacy 53.0826; Globulin 2.2 g/dL (1.3-4.6); Glucose 131 mg/dL (65-115); Osmolality Calculated 288 mOsm/kg (285-295); Potassium 3.3 mmol/L (3.5-5.1); Sodium 136 mmol/L (136-145); Total Bilirubin 0.4 mg/dL (0.15-1.2); Total Protein 4.7 g/dL (6.6-8.7)
[2024-02-27] MEDS: heparin 5,000 unit/mL INJ 1 mL 5000 UNIT SUBCUT ×2 (05:15→16:56)
[2024-02-27] MEDS: piperacillin-tazobactam 3.375 GM in sodium chloride 0.9% (plus) 50 ML IV ×3 (05:15→20:54)
[2024-02-27 06:29] LABS: Glucose Point of Care 135 mg/dL (70-110)
[2024-02-27] MEDS: folic acid 1 mg Tablet PO ×2 (08:07→17:13)
--- NOTE | 2024-02-27 09:35 | P.PN_ITS ---
Subjective 2 Subjective: Postoperative day 2 status post ankle disarticulation for left foot gangrene. Doing very well no significant issues. Reported some pain at the level of the foot I have explained to him that this phantom pain and we will manage with medication. Vitals/I&O/Wt Last Vital Signs Temp 97.8 F 02/27/24 07:44 Pulse 73 02/27/24 07:44 Resp 18 02/27/24 07:44 BP 146/78 02/27/24 07:44 Pulse Ox 98 02/27/24 07:44 O2 Del Method Room Air 02/27/24 07:44 02/26/24 02/27/24 02/27/24 22:59 06:59 14:59 Intake Total 1170 / 1580 530 / 2110 650 / 650 Balance 1170 / 1580 530 / 2110 650 / 650 Weight last 48 hrs Weight 150 lb 12.8 oz Weight 144 lb 9.6 oz Weight 132 lb 9.6 oz Weight 135 lb 4.8 oz Weight 142 lb Physical Exam 2 Extremity: OTHER: Left lower extremity surgical site is covered with bandage Data 02/27/24 02:38 02/27/24 02:38 Micro: Microbiology 02/25/24 12:33 Blood Culture - Preliminary Blood 02/25/24 13:17 Blood Culture - Preliminary Blood A&P Assessment and plan (1) Sepsis: Plan Patient showing very good progression, his white count has gone back to normal, his electrolyte abnormalities have been corrected by medical team, his elevated hypokalemic today we will discuss with medical team for replacement. Plan is to revise to a formal amputation on Thursday. Attestations 2 Medical Necessity Statement*: Patient will require 48 to 72 hours of hospital stay for revision of amputation and IV antibiotics for left foot gangrene Coding Level of Care Code 03627 Diagnoses Sepsis A41.9
[2024-02-27] MEDS: losartan 50 mg Tablet 25 MG PO (10:52)
[2024-02-27 11:04] LABS: Ferritin 1690 ng/mL (30-400)
[2024-02-27 11:51] LABS: Glucose Point of Care 189 mg/dL (70-110)
[2024-02-27] MEDS: insulin lispro 100 unit/1 mL SUBCUT ×2 (12:01→17:12)
--- NOTE | 2024-02-27 14:05 | P.PN_ITS ---
Subjective 2 Subjective: No acute events overnight. Patient sitting up in chair today. Complaining of mild pain in the foot. Discussed about phantom limb pain. Has remained hemodynamically stable and afebrile with slightly elevated blood pressures. Complaining of weakness. Vitals/I&O/Wt Last Vital Signs Temp 97.5 F L 02/27/24 12:03 Pulse 79 02/27/24 12:03 Resp 16 02/27/24 12:03 BP 142/68 02/27/24 12:03 Pulse Ox 97 02/27/24 12:03 O2 Del Method Room Air 02/27/24 12:03 02/26/24 02/27/24 02/27/24 22:59 06:59 14:59 Intake Total 1170 / 1580 530 / 2110 1130 / 1130 Output Total 400 / 400 Balance 1170 / 1580 530 / 2110 730 / 730 Weight last 48 hrs Weight 68.402 kg Weight 65.589 kg Weight 60.146 kg Weight 61.371 kg Physical Exam 2 Narrative: General: No acute distress, AO x3 HEENT: PERRLA, pupils bilaterally equal and reactive Chest: Normal vesicular breath sounds, no added sounds, equal good air entry bilaterally CVS: S1-S2 regular, no murmurs, no tachycardia, no gallops, no rubs Abdomen: Soft, nontender, no organomegaly, bowel sounds present Neuro: No focal deficits, no facial deformity, AO x3, power 5/5 in all limbs Extremity: Surgical bandage after amputation of left foot. Data 02/27/24 02:38 02/27/24 02:38 Micro: Microbiology 02/25/24 12:33 Blood Culture - Preliminary Blood 02/25/24 13:17 Blood Culture - Preliminary Blood A&P Assessment and plan (1) Acute osteomyelitis of left foot: Appreciated on foot x-ray. ESR CRP elevated. Surgery consulted for possible BKA versus ankle disarticulation. Antibiotic as below. (2) Sepsis: SIRS: Tachycardic, Febrile, Leukocytosis Source: Osteomyelitis with concern for gas gangrene of left foot End organ damage: Metabolic acidosis Lactic acid elevated Patient did receive sepsis bolus. Will continue with normal saline at 50 cc/h. Monitor blood pressures. Keep mean artery pressure 65 mmHg. Check blood culture, urine culture, MRSA swab, procalcitonin, bacterial antigen. Empirically started on IV Zosyn and linezolid for now. Will discontinue linezolid if MRSA swab negative. (3) Gangrene of left foot: Treatment as above. Could be in setting of uncontrolled diabetes. Will check lower limb arterial duplex to rule out PAD. (4) Type 2 diabetes mellitus: Anion gap metabolic acidosis. Ketones negative. ABG normal. No concerns for DKA for now. Check A1c. Sliding scale at moderate dose protocol. Does not seem to be on any medication as an outpatient. Most likely will need OHA's versus insulin depending on the requirement during hospitalization. (5) High anion gap metabolic acidosis: Most likely in setting of lactic acidosis. Continue to monitor. Fluid of as above. (6) Elevated lactic acid level: Plan Full code Carb consistent diet Protonix for PUD prophylaxis Heparin 5000 Q12 hourly for DVT prophylaxis Plan for the day: Continue current IV antibiotics. Plan for BKA on Thursday. Follow-up blood cultures. Add [place] 5 mg every 4 hours as needed for pain. Appreciate repeat ESR, CRP and lactic acid. Trending down. Continue to monitor hemoglobin. Target hemoglobin more than 7. Will transfuse accordingly. Continue with oral folic acid and iron supplementation. Goal blood pressure less than 140/90 mmHg. Slightly elevated. Add losartan 25 mg oral daily. Uptitrate accordingly. Physical therapy. Plan for the day: Patient today states he would prefer to go to SNF for further rehabitation before going back home. Physical therapy evaluation. manager media alerted. Attestations 2 Medical Necessity Statement*: Requires further hospitalization for management of osteomyelitis, gangrene of the foot post disarticulation as patient requires further BKA, safe discharge planning. Diagnoses Acute osteomyelitis of left foot M86.172 Sepsis A41.9 Gangrene of left foot I96 Type 2 diabetes mellitus E11.9 High anion gap metabolic acidosis E87.29 Elevated lactic acid level R79.89
[2024-02-27 16:56] LABS: Glucose Point of Care 143 mg/dL (70-110)
[2024-02-27] MEDS: pantoprazole 40 mg SDV IVP (16:56)
[2024-02-27] MEDS: ferrous gluconate 324 mg Tablet PO (17:13)
[2024-02-27 20:34] LABS: Glucose Point of Care 124 mg/dL (70-110)
[2024-02-28] VITALS (10 sets, daily range): BP systolic 109–144; BP diastolic 61–81; PULSE 71–93; RESP 16–18; TEMP 36.4–36.8; O2SAT 96–100; BMI 23.5
[2024-02-28 03:31] LABS: Basophils % 0.5 %; Eosinophils # 0.1 10^3/uL (0.0-0.8); Eosinophils % 2.1 %; Hematocrit 26.5 % (37-53); Lymphocytes # 1.7 10^3/uL (0.8-4.8); Mean Corpuscular HGB Conc 30.9 g/dL (30-55); Mean Corpuscular Hemoglobin 26.3 pg (27-33); Mean Corpuscular Volume 84.9 fl (82-101); Mean Platelet Volume 9.6 fL (7.4-10.4); Monocytes # 0.5 10^3/uL (0.2-0.9); Monocytes % 8.5 %; Neutrophils # 3.12 10^3/uL (1.8-7.7); Neutrophils % 55.4 %; Nucleated Red Blood Cells % 0 %; Platelet Count 165 10^3/cmm (157-399); Red Blood Count 3.12 10^6/uL (3.85-5.65); Red Cell Distribution Width 14.8 % (12.1-15.1); White Blood Count 5.64 10^3/uL (3.29-11.43)
[2024-02-28 03:57] LABS: Alanine Aminotransferase < 5 U/L (0-41); Albumin Level 2.5 g/dL (3.5-5.2); Alkaline Phosphatase 89 U/L (40-130); Anion Gap 13.8 (5-19); Aspartate Amino Transferase 7 U/L (0-40); Blood Urea Nitrogen 22 mg/dL (8-23); Calcium 7.8 mg/dL (8.5-10.5); Carbon Dioxide 24 mmol/L (22-29); Chloride 104 mmol/L (98-107); Globulin 2.7 g/dL (1.3-4.6); Glucose 137 mg/dL (65-115); Osmolality Calculated 291 mOsm/kg (285-295); Potassium 3.8 mmol/L (3.5-5.1); Sodium 138 mmol/L (136-145); Total Bilirubin 0.4 mg/dL (0.15-1.2); Total Protein 5.2 g/dL (6.6-8.7)
[2024-02-28] MEDS: piperacillin-tazobactam 3.375 GM in sodium chloride 0.9% (plus) 50 ML IV ×3 (05:00→21:11)
[2024-02-28] MEDS: heparin 5,000 unit/mL INJ 1 mL 5000 UNIT SUBCUT ×2 (05:00→15:57)
[2024-02-28 06:29] LABS: Glucose Point of Care 129 mg/dL (70-110)
--- NOTE | 2024-02-28 09:06 | PM.PN ---
Subjective Subjective: This is a 84-year-old male who presented with left foot gangrene and is now status post ankle disarticulation on the left. Patient is doing okay white count has remained stable vitals are stable and he is not having any significant symptoms. Vitals/I&O/Wt Last Vital Signs Temp 97.9 F 02/28/24 08:00 Pulse 71 02/28/24 08:00 Resp 16 02/28/24 08:00 BP 132/76 02/28/24 08:00 Pulse Ox 99 02/28/24 08:00 O2 Del Method Room Air 02/28/24 08:00 02/27/24 02/28/24 02/28/24 22:59 06:59 14:59 Intake Total 530 / 1660 50 / 1710 240 / 240 Output Total 400 / 800 Balance 530 / 1260 -350 / 910 240 / 240 Weight last 48 hrs Weight 150 lb Weight 150 lb 12.8 oz Weight 144 lb 9.6 oz Physical Exam Extremity: NARRATIVE EXTREMITY EXAM: Left lower extremity wound is covered with dressing. Data 02/28/24 03:03 02/28/24 03:03 Micro: Microbiology 02/25/24 12:33 Blood Culture - Preliminary Blood 02/25/24 13:17 Blood Culture - Preliminary Blood A&P Assessment and plan (1) Acute osteomyelitis of left foot: (2) Sepsis: (3) Gangrene of left foot: Plan Patient is showing good progression, for revision of amputation tomorrow in the OR. After that he will be cleared for discharge from surgery standpoint. Attestations Medical Necessity Statement*: Patient will require 24 to 48 hours of hospital stay for continued management of gangrene of the left foot and revision of amputation Coding Level of Care Code Acute Code for [facility] Diagnoses Acute osteomyelitis of left foot M86.172 Sepsis A41.9 Gangrene of left foot I96
[2024-02-28] MEDS: losartan 50 mg Tablet 25 MG PO (09:34)
[2024-02-28] MEDS: folic acid 1 mg Tablet PO ×2 (09:34→17:52)
[2024-02-28] MEDS: ferrous gluconate 324 mg Tablet PO ×2 (09:34→17:52)
[2024-02-28 10:56] LABS: Glucose Point of Care 204 mg/dL (70-110)
[2024-02-28] MEDS: insulin lispro 100 unit/1 mL SUBCUT ×3 (11:52→21:11)
--- NOTE | 2024-02-28 14:29 | PM.PN ---
Subjective Subjective: No acute events overnight. Patient has remained hemodynamically stable and afebrile. Denies any new complaints. Vitals/I&O/Wt Last Vital Signs Temp 97.7 F 02/28/24 11:32 Pulse 77 02/28/24 11:32 Resp 18 02/28/24 11:32 BP 126/67 02/28/24 11:32 Pulse Ox 100 02/28/24 11:32 O2 Del Method Room Air 02/28/24 11:32 02/27/24 02/28/24 02/28/24 22:59 06:59 14:59 Intake Total 530 / 1660 50 / 1710 690 / 690 Output Total 400 / 800 125 / 125 Balance 530 / 1260 -350 / 910 565 / 565 Weight last 48 hrs Weight 68.039 kg Weight 68.039 kg Weight 68.402 kg Physical Exam Narrative: General: No acute distress, AO x3 HEENT: PERRLA, pupils bilaterally equal and reactive Chest: Normal vesicular breath sounds, no added sounds, equal good air entry bilaterally CVS: S1-S2 regular, no murmurs, no tachycardia, no gallops, no rubs Abdomen: Soft, nontender, no organomegaly, bowel sounds present Neuro: No focal deficits, no facial deformity, AO x3, power 5/5 in all limbs Extremity: Surgical bandage after amputation of left foot. Data 02/28/24 03:03 02/28/24 03:03 Micro: Microbiology 02/28/24 12:28 Blood Culture - Preliminary Blood SPECIMEN COLLECTED 02/28/24 12:27 Blood Culture - Preliminary Blood SPECIMEN COLLECTED 02/25/24 13:17 Blood Culture - Preliminary Blood A&P Assessment and plan (1) Acute osteomyelitis of left foot: Appreciated on foot x-ray. ESR CRP elevated. Surgery consulted for possible BKA versus ankle disarticulation. Antibiotic as below. (2) Sepsis: SIRS: Tachycardic, Febrile, Leukocytosis Source: Osteomyelitis with concern for gas gangrene of left foot End organ damage: Metabolic acidosis Lactic acid elevated Patient did receive sepsis bolus. Will continue with normal saline at 50 cc/h. Monitor blood pressures. Keep mean artery pressure 65 mmHg. Check blood culture, urine culture, MRSA swab, procalcitonin, bacterial antigen. Empirically started on IV Zosyn and linezolid for now. Will discontinue linezolid if MRSA swab negative. (3) Gangrene of left foot: Treatment as above. Could be in setting of uncontrolled diabetes. Will check lower limb arterial duplex to rule out PAD. (4) Type 2 diabetes mellitus: Anion gap metabolic acidosis. Ketones negative. ABG normal. No concerns for DKA for now. Check A1c. Sliding scale at moderate dose protocol. Does not seem to be on any medication as an outpatient. Most likely will need OHA's versus insulin depending on the requirement during hospitalization. (5) High anion gap metabolic acidosis: Most likely in setting of lactic acidosis. Continue to monitor. Fluid of as above. (6) Elevated lactic acid level: Plan Full code Carb consistent diet Protonix for PUD prophylaxis Heparin 5000 Q12 hourly for DVT prophylaxis Plan for the day: Continue with current IV antibiotics. Blood culture from admission 1 out of 4 bottles positive for gram-positive rods. Most likely contaminant. Will repeat blood cultures. Plan for revision of amputation in AM. Continue with current diabetes management. Blood sugar well-controlled. Continue losartan 25 mg oral daily. Blood pressure is better controlled. Goal less than 140/90 mmHg. Plan for the day: Patient today states he would prefer to go to SNF for further rehabitation before going back home. Physical therapy evaluation. accounting practice manager alerted. Attestations Medical Necessity Statement*: Requires further hospitalization for management of gangrene of foot requiring amputation, awaiting revision of amputation, patient with history of diabetes and high blood pressure, gram-positive bacteremia Diagnoses Acute osteomyelitis of left foot M86.172 Sepsis A41.9 Gangrene of left foot I96 Type 2 diabetes mellitus E11.9 High anion gap metabolic acidosis E87.29 Elevated lactic acid level R79.89
[2024-02-28 15:34] LABS: Glucose Point of Care 162 mg/dL (70-110)
[2024-02-28] MEDS: pantoprazole 40 mg SDV IVP (15:57)
[2024-02-28 20:40] LABS: Glucose Point of Care 168 mg/dL (70-110)
[2024-02-28] MEDS: trazodone 50 mg Tablet PO (21:11)
[2024-02-29] VITALS (7 sets, daily range): BP systolic 89–128; BP diastolic 50–67; PULSE 81–91; RESP 15–17; TEMP 36.4–36.8; O2SAT 97–99
[2024-02-29] MEDS: piperacillin-tazobactam 3.375 GM in sodium chloride 0.9% (plus) 50 ML IV ×3 (05:10→21:31)
[2024-02-29] MEDS: heparin 5,000 unit/mL INJ 1 mL 5000 UNIT SUBCUT (05:10)
[2024-02-29 06:02] LABS: Basophils % 0.4 %; Eosinophils # 0.1 10^3/uL (0.0-0.8); Hematocrit 26.9 % (37-53); Lymphocytes # 1.8 10^3/uL (0.8-4.8); Lymphocytes % 25.1 %; Mean Corpuscular HGB Conc 30.5 g/dL (30-55); Mean Corpuscular Hemoglobin 26.2 pg (27-33); Mean Corpuscular Volume 85.9 fl (82-101); Mean Platelet Volume 9.7 fL (7.4-10.4); Monocytes # 0.6 10^3/uL (0.2-0.9); Monocytes % 8.3 %; Neutrophils # 4.33 10^3/uL (1.8-7.7); Neutrophils % 61.8 %; Nucleated Red Blood Cells % 0 %; Platelet Count 158 10^3/cmm (157-399); Red Blood Count 3.13 10^6/uL (3.85-5.65); Red Cell Distribution Width 14.9 % (12.1-15.1); White Blood Count 7.01 10^3/uL (3.29-11.43)
[2024-02-29 06:24] LABS: Alanine Aminotransferase 8 U/L (0-41); Albumin Level 2.5 g/dL (3.5-5.2); Alkaline Phosphatase 92 U/L (40-130); Anion Gap 15.1 (5-19); Aspartate Amino Transferase 11 U/L (0-40); Blood Urea Nitrogen 21 mg/dL (8-23); Calcium 8.1 mg/dL (8.5-10.5); Carbon Dioxide 25 mmol/L (22-29); Chloride 101 mmol/L (98-107); Globulin 2.9 g/dL (1.3-4.6); Glucose 163 mg/dL (65-115); Osmolality Calculated 291 mOsm/kg (285-295); Potassium 4.1 mmol/L (3.5-5.1); Sodium 137 mmol/L (136-145); Total Bilirubin 0.3 mg/dL (0.15-1.2); Total Protein 5.4 g/dL (6.6-8.7)
[2024-02-29 06:50] LABS: Glucose Point of Care 166 mg/dL (70-110)
[2024-02-29] MEDS: ferrous gluconate 324 mg Tablet PO ×2 (07:52→18:47)
[2024-02-29] MEDS: losartan 50 mg Tablet 25 MG PO (07:53)
[2024-02-29] MEDS: insulin lispro 100 unit/1 mL SUBCUT ×3 (07:54→21:59)
[2024-02-29] MEDS: folic acid 1 mg Tablet PO ×2 (07:54→18:47)
--- NOTE | 2024-02-29 08:03 | PC.NURSE ---
Went in to give patient medications and breakfast tray sitting on bedside table where patient has already eaten. No NPO orders placed in chart.
[2024-02-29 10:58] LABS: Glucose Point of Care 202 mg/dL (70-110)
--- NOTE | 2024-02-29 12:52 | P.PN_ITS ---
Subjective 2 Subjective: No acute events overnight. Has remained hemodynamically stable and afebrile. Remains on room air. Patient was to go to the OR today but he somehow had his breakfast. Vitals/I&O/Wt Last Vital Signs Temp 97.5 F L 02/29/24 11:21 Pulse 88 02/29/24 11:21 Resp 16 02/29/24 07:22 BP 110/52 02/29/24 11:21 Pulse Ox 97 02/29/24 11:21 O2 Del Method Room Air 02/29/24 07:22 02/28/24 02/29/24 02/29/24 22:59 06:59 14:59 Intake Total 410 / 1100 50 / 1150 290 / 290 Output Total 250 / 375 385 / 760 Balance 160 / 725 -335 / 390 290 / 290 Weight last 48 hrs Weight 68.039 kg Weight 68.039 kg Weight 68.039 kg Physical Exam 2 Narrative: General: No acute distress, AO x3 HEENT: PERRLA, pupils bilaterally equal and reactive Chest: Normal vesicular breath sounds, no added sounds, equal good air entry bilaterally CVS: S1-S2 regular, no murmurs, no tachycardia, no gallops, no rubs Abdomen: Soft, nontender, no organomegaly, bowel sounds present Neuro: No focal deficits, no facial deformity, AO x3, power 5/5 in all limbs Extremity: Surgical bandage after amputation of left foot. Data 02/29/24 05:37 02/29/24 05:37 Micro: Microbiology 02/28/24 12:28 Blood Culture - Preliminary Blood NEGATIVE TO DATE 02/28/24 12:27 Blood Culture - Preliminary Blood NEGATIVE TO DATE 02/25/24 13:17 Blood Culture - Preliminary Blood A&P Assessment and plan (1) Acute osteomyelitis of left foot: Appreciated on foot x-ray. ESR CRP elevated. Surgery consulted for possible BKA versus ankle disarticulation. Antibiotic as below. (2) Sepsis: SIRS: Tachycardic, Febrile, Leukocytosis Source: Osteomyelitis with concern for gas gangrene of left foot End organ damage: Metabolic acidosis Lactic acid elevated Patient did receive sepsis bolus. Will continue with normal saline at 50 cc/h. Monitor blood pressures. Keep mean artery pressure 65 mmHg. Check blood culture, urine culture, MRSA swab, procalcitonin, bacterial antigen. Empirically started on IV Zosyn and linezolid for now. Will discontinue linezolid if MRSA swab negative. (3) Gangrene of left foot: Treatment as above. Could be in setting of uncontrolled diabetes. Will check lower limb arterial duplex to rule out PAD. (4) Type 2 diabetes mellitus: Anion gap metabolic acidosis. Ketones negative. ABG normal. No concerns for DKA for now. Check A1c. Sliding scale at moderate dose protocol. Does not seem to be on any medication as an outpatient. Most likely will need OHA's versus insulin depending on the requirement during hospitalization. (5) High anion gap metabolic acidosis: Most likely in setting of lactic acidosis. Continue to monitor. Fluid of as above. (6) Elevated lactic acid level: Plan Full code Carb consistent diet Protonix for PUD prophylaxis Heparin 5000 Q12 hourly for DVT prophylaxis Plan for the day: Plan for revision of amputation tomorrow. NPO. Continue with current care for diabetes and high blood pressure. Currently medication optimized. Continue with IV Zosyn. Will plan to continue for 24 hours postoperatively. Blood culture 1 out of 4 bottles positive from admission. Most likely contaminant. Repeat blood culture sent on 02/27. Plan for the day: Patient today states he would prefer to go to SNF for further rehabitation before going back home. Physical therapy evaluation. manager android alerted. 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
--- NOTE | 2024-02-29 13:02 | PC.SOCIAL ---
IMM Updated Updated pt on IMM. No questions voiced. Provided pt a copy. Initialed, dated, & timed copy in chart.
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
[2024-02-29 16:32] LABS: Glucose Point of Care 104 mg/dL (70-110)
[2024-02-29] MEDS: pantoprazole 40 mg SDV IVP (18:42)
[2024-02-29 21:53] LABS: Glucose Point of Care 230 mg/dL (70-110)
[2024-03-01] VITALS (27 sets, daily range): BP systolic 97–169; BP diastolic 51–91; PULSE 65–103; RESP 16–18; TEMP 36.3–36.7; O2SAT 92–100; BMI 23.3
[2024-03-01 00:43] LABS: Bilirubin Urine Negative (Negative); Blood Urine Negative (Negative); Glucose Urine UA Trace (Normal); Ketones Urine Negative (Negative); Leukocyte Esterase Urine Negative (Negative); Nitrate Urine Negative (Negative); Protein Urine 1+ (Negative); Urine Appearance Clear (CLEAR); Urine Color Yellow (Yellow); pH Urine 5.5 (5-7)
[2024-03-01 00:47] LABS: Add Urine Microscopic? YES; Bacteria Urine None Seen /hpf; Hyaline Casts Urine 4.52 /lpf; RBC Urine 0-2 /hpf (0-2); Squamous Epithelial Cell Urine 0-5 /hpf (0-5); WBC Urine 0-5 /hpf (0-5)
[2024-03-01 00:49] LABS: Amphetamines Screen Urine Negative (Negative); Barbiturates Screen Urine Negative (Negative); Benzodiazepines Screen Urine Negative (Negative); Cocaine Screen Urine Negative (Negative); Opiate Screen Urine Negative (Negative); PCP Screen Urine Negative (Negative); THC Screen Urine Negative (Negative)
[2024-03-01] MEDS: piperacillin-tazobactam 3.375 GM in sodium chloride 0.9% (plus) 50 ML IV ×3 (05:17→20:20)
[2024-03-01 05:59] LABS: Basophils % 0.5 %; Eosinophils # 0.2 10^3/uL (0.0-0.8); Hematocrit 26.8 % (37-53); Lymphocytes # 1.8 10^3/uL (0.8-4.8); Lymphocytes % 23.4 %; Mean Corpuscular HGB Conc 30.6 g/dL (30-55); Mean Corpuscular Hemoglobin 26.7 pg (27-33); Mean Corpuscular Volume 87.3 fl (82-101); Mean Platelet Volume 9.9 fL (7.4-10.4); Monocytes # 0.7 10^3/uL (0.2-0.9); Monocytes % 8.6 %; Neutrophils # 4.83 10^3/uL (1.8-7.7); Neutrophils % 63.3 %; Nucleated Red Blood Cells % 0 %; Platelet Count 163 10^3/cmm (157-399); Red Blood Count 3.07 10^6/uL (3.85-5.65); Red Cell Distribution Width 15.2 % (12.1-15.1); White Blood Count 7.64 10^3/uL (3.29-11.43)
[2024-03-01 06:25] LABS: Alanine Aminotransferase 11 U/L (0-41); Albumin Level 2.8 g/dL (3.5-5.2); Alkaline Phosphatase 88 U/L (40-130); Aspartate Amino Transferase 14 U/L (0-40); Blood Urea Nitrogen 19 mg/dL (8-23); Calcium 8.5 mg/dL (8.5-10.5); Carbon Dioxide 28 mmol/L (22-29); Chloride 103 mmol/L (98-107); Creatinine Clr Calc Pharmacy 44.7714; Globulin 2.9 g/dL (1.3-4.6); Glucose 110 mg/dL (65-115); Osmolality Calculated 291 mOsm/kg (285-295); Sodium 139 mmol/L (136-145); Total Bilirubin 0.3 mg/dL (0.15-1.2); Total Protein 5.7 g/dL (6.6-8.7)
--- NOTE | 2024-03-01 07:41 | P.HPUD_ITS ---
Surgery/Procedure H&P Update DATE OF PROCEDURE: March 01, 2024 DATE H&P PERFORMED: 02/25/24 H&P UPDATE INFORMATION: I have reviewed H&P completed within last 30 days, I have examined patient prior to procedure, No changes to prior documentation and H&P is in [facility] [place] on date indicated PREOP DIAGNOSIS: Gangrene of the foot PLANNED PROCEDURE: Operation Date: 02/25/24 14:55 Proposed Procedures p Amputation Lower Extremity(Left) - Ulises Hyman MD Operation Date: 03/01/24 13:05 Proposed Procedures p Left BKA (Below Knee Amputation), possible above the knee amputation(Left) - Ulises Hyman MD
[2024-03-01] MEDS: ferrous gluconate 324 mg Tablet PO ×2 (08:18→17:11)
[2024-03-01] MEDS: folic acid 1 mg Tablet PO ×2 (08:18→17:11)
[2024-03-01 10:58] LABS: Glucose Point of Care 129 mg/dL (70-110)
--- NOTE | 2024-03-01 12:25 | P.ANESUD_ITS ---
Pre-Anesthetic Update Pre-Anesthetic Assessment: Date of Surgery/Procedure: 03/02/24 Preop Alda gnosis: Gangrene of the foot Proposed Procedure: Operation Date: 02/25/24 14:55 Proposed Procedures p Amputation Lower Extremity(Left) - Ulises Hyman MD Operation Date: 03/01/24 13:05 Proposed Procedures p Left BKA (Below Knee Amputation), possible above the knee amputation(Left) - Ulises Hyman MD Any changes to Pre-Anesthetic Assessment?: No Last Intake: Intake Last Liquid Date 02/29/24 Last Liquid Time 21:00 Last Solid Date 02/29/24 Last Solid Time 19:00 Labs Last 48hrs: Short CBC 03/01/24 Range/Units 05:11 WBC 7.64 (3.29-11.43) 10^ 3/uL Hgb 8.20 L (11.27-16.99) g/ dL Hct 26.8 L (37-53) % MCV 87.3 (82-101) fl Plt Count 163 (157-399) 10^3/c mm Neut % (Auto) 63.3 % Neut # (Auto) 4.83 (1.8-7.7) 10^3/u L BMP 03/01/24 05:11 Sodium 139 Potassium 4.0 Chloride 103 Carbon Dioxide 28 BUN 19 Creatinine 1.2 Glucose 110 Calcium 8.5 Liver Function 03/01/24 Range/Units 05:11 Total Bilirubin 0.3 (0.15-1.2) mg/dL AST 14 (0-40) U/L ALT 11 (0-41) U/L Alkaline Phosphata se 88 (40-130) U/L Albumin 2.8 L (3.5-5.2) g/dL Urine 03/01/24 Range/Units 00:35 Urine Color Yellow (Yellow) Urine Appearance Clear (CLEAR) Urine pH 5.5 (5-7) Ur Specific Gravit y 1.020 (1.005-1.030) Urine Protein 1+ A (Negative) Urine Glucose (UA) Trace H (Normal) Urine Ketones Negative (Negative) Urine Nitrate Negative (Negative) Urine Bilirubin Negative (Negative) Ur Leukocyte Jyothi ase Negative (Negative) Urine RBC 0-2 (0-2) /hpf Urine WBC 0-5 (0-5) /hpf Vitals: Temperature 97.6 F 03/02/24 03:33 Temperature Source Axillary 03/02/24 03:33 Pulse Rate 94 03/02/24 06:00 Pulse Rhythm Regular 03/01/24 08:00 Pulse Strength 3+ Normal 03/01/24 08:00 Respiratory Rate 16 03/02/24 03:33 Respiratory Effort Spontaneous, Non- Labored 03/01/24 20:20 Respiratory Depth Normal 03/01/24 20:20 Respiratory Patter n Normal 03/01/24 15:05 Blood Pressure 129/65 03/02/24 03:33 Blood Pressure Jesi n 86 03/02/24 03:33 Blood Pressure Pos ition Supine 03/02/24 03:33 Pulse Oximetry 98 03/02/24 03:33 Oxygen Delivery Me thod Room Air 03/02/24 03:33 Oxygen Flow Rate 6 03/01/24 14:38 Exam: Pre-Anes Outpt Exam: alert, oriented x 3, clear to auscultation bilaterally and regular rate & rhythm Cardiac Studies: No Data to Display
[2024-03-01] MEDS: sodium chloride 0.9% 1,000 ML 30 ML IV (12:35)
[2024-03-01 12:41] LABS: Glucose Point of Care 121 mg/dL (70-110)
[2024-03-01] MEDS: VANCOMYCIN ADD-Vantage 1,000 MG VIAL 1000 MG XX (14:18)
--- NOTE | 2024-03-01 14:25 | P.PN_ITS ---
Subjective 2 Subjective: No acute events overnight. Has remained hemodynamically stable and afebrile. Sitting comfortably in bed today. Denies any nausea vomiting, headache. Remains on room air. Vitals/I&O/Wt Last Vital Signs Temp 97.5 F L 03/01/24 11:33 Pulse 78 03/01/24 11:33 Resp 17 03/01/24 11:33 BP 122/62 03/01/24 11:33 Pulse Ox 94 03/01/24 11:33 O2 Del Method Room Air 03/01/24 11:33 02/29/24 03/01/24 03/01/24 22:59 06:59 14:59 Intake Total 50 / 580 50 / 630 50 / 50 Output Total 225 / 225 250 / 475 Balance -175 / 355 -200 / 155 50 / 50 Weight last 48 hrs Weight 67.585 kg Weight 68.039 kg Physical Exam 2 Narrative: General: No acute distress, AO x3 HEENT: PERRLA, pupils bilaterally equal and reactive Chest: Normal vesicular breath sounds, no added sounds, equal good air entry bilaterally CVS: S1-S2 regular, no murmurs, no tachycardia, no gallops, no rubs Abdomen: Soft, nontender, no organomegaly, bowel sounds present Neuro: No focal deficits, no facial deformity, AO x3, power 5/5 in all limbs Extremity: Surgical bandage after amputation of left foot. Data 03/01/24 05:11 03/01/24 05:11 Micro: Microbiology 03/01/24 00:35 Bacterial Antigens - Final Urine Kidney 02/28/24 12:28 Blood Culture - Preliminary Blood NEGATIVE TO DATE 02/28/24 12:27 Blood Culture - Preliminary Blood NEGATIVE TO DATE A&P Assessment and plan (1) Acute osteomyelitis of left foot: Appreciated on foot x-ray. ESR CRP elevated. Surgery consulted for possible BKA versus ankle disarticulation. Antibiotic as below. (2) Sepsis: SIRS: Tachycardic, Febrile, Leukocytosis Source: Osteomyelitis with concern for gas gangrene of left foot End organ damage: Metabolic acidosis Lactic acid elevated Patient did receive sepsis bolus. Will continue with normal saline at 50 cc/h. Monitor blood pressures. Keep mean artery pressure 65 mmHg. Check blood culture, urine culture, MRSA swab, procalcitonin, bacterial antigen. Empirically started on IV Zosyn and linezolid for now. Will discontinue linezolid if MRSA swab negative. (3) Gangrene of left foot: Treatment as above. Could be in setting of uncontrolled diabetes. Will check lower limb arterial duplex to rule out PAD. (4) Type 2 diabetes mellitus: Anion gap metabolic acidosis. Ketones negative. ABG normal. No concerns for DKA for now. Check A1c. Sliding scale at moderate dose protocol. Does not seem to be on any medication as an outpatient. Most likely will need OHA's versus insulin depending on the requirement during hospitalization. (5) High anion gap metabolic acidosis: Most likely in setting of lactic acidosis. Continue to monitor. Fluid of as above. (6) Elevated lactic acid level: Plan Full code Carb consistent diet Protonix for PUD prophylaxis Heparin 5000 Q12 hourly for DVT prophylaxis Plan for the day: Plan for revision of amputation today. Start on cardiac carb consistent diet postoperatively. Blood sugar, hemoglobin, blood pressure so far stable. Continue with IV Zosyn per 24 hours postoperatively. Follow-up blood cultures. Plan for the day: Patient today states he would prefer to go to SNF for further rehabitation before going back home. Physical therapy evaluation. log manager alerted. Attestations 2 Medical Necessity Statement*: Requires further hospitalization for revision of amputation the patient developed redness gangrene, post disarticulation of foot, type 2 diabetes mellitus. Discharge planning is sought Diagnoses Acute osteomyelitis of left foot M86.172 Sepsis A41.9 Gangrene of left foot I96 Type 2 diabetes mellitus E11.9 High anion gap metabolic acidosis E87.29 Elevated lactic acid level R79.89
[2024-03-01] MEDS: fentaNYL 50 mcg/mL INJ 2mL IVP ×2 (14:55→15:05)
--- NOTE | 2024-03-01 14:57 | PM.OP ---
Operative Report Date of procedure: March 01, 2024 Pre-op diagnosis: Left foot gangrene Post-op diagnosis: Same Post-op findings: Normal vascular anatomy of the left lower extremity no evidence of gangrene proximal to the area of previous amputation. 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 General anesthesia was given, the left leg was prepped and draped in usual sterile fashion. The left lower extremity was marked about 10 cm below the tibial tuberosity and markings for the posterior flap were made. Dr. Ramírez scrubbed into the case for assistance due to additional expertise with lower extremity amputations. A timeout was conducted. Tourniquet was placed and inflated. We then proceeded to make an incision on the skin following the markings of the anterior rotation line as well as the posterior flap. Incision was deepened in anterior aspect until the tibia was identified the muscles of the anterolateral compartment were taken down with electrocautery until the fibula was identified. I then proceeded to elevate the periosteum of the tibia and the fibula once the periosteum was elevated I passed a clamp posterior to the tibia and the fibula to break all the periosteal tissue, once there was a good area for amputation I then proceeded to cut the tibia and the fibula with a mechanical saw, the fibula was cut 1 cm more proximal than the tibia. I then proceeded to use an amputation knife to cut of the muscle and soft tissue posterior to the tibia and the fibula keeping her for consideration of preserving the gastrocnemius muscle. The specimen was liberated and sent to pathology. The vascular bundles were identified and suture-ligated with #2-0 silk. The tourniquet was released total tourniquet time was about 30 minutes. Hemostasis was achieved. Bone wax was placed at the level of the tibia and the fibula. I then proceeded to irrigate the wound and placed some vancomycin powder on the tissue. I then proceeded to ream down the flap to ensure that it was going to provide an adequate closure. Once the flap was noted to be adequate I then approximated the fascia of the flap to the fascia anterior to the tibia using #2-0 Vicryl sutures, complete closure was achieved with multiple 2-0 Vicryl sutures and then I proceeded to reinforce the closure using #2-0 PDS STRATAFIX. The wound was irrigated once again and the skin was closed with a bianca. A sterile dressing was applied providing compression. An immobilizer was placed to prevent contracture. At the end of the procedure all counts were correct, the patient tolerated well the procedure was transferred to PACU in stable condition.
--- NOTE | 2024-03-01 15:25 | ANE.PACU2 ---
Inpatient post-anesthesia follow up: Airway intact: Yes Vital signs: Temperature 97.6 F Pulse Rate 94 Respiratory Rate 16 Blood Pressure 129/65 Pulse Oximetry 98 Oxygen Delivery Me thod Room Air Oxygen Flow Rate 6 Fraction of Inspir ed Oxygen Hydration adequate: Yes Nausea and vomiting: No Pain level: 1 Mental status: Baseline
[2024-03-01 16:40] LABS: Glucose Point of Care 209 mg/dL (70-110)
[2024-03-01] MEDS: insulin lispro 100 unit/1 mL SUBCUT ×2 (17:11→21:48)
[2024-03-01] MEDS: morphine 4 mg/mL SDV 1 mL 2 MG IVP (17:11)
[2024-03-01] MEDS: heparin 5,000 unit/mL INJ 1 mL 5000 UNIT SUBCUT (17:11)
[2024-03-01] MEDS: pantoprazole 40 mg SDV IVP (17:11)
[2024-03-01] MEDS: acetaminophen 1,000 MG/100 ML PIGGYBACK 400 MG IV (18:44)
[2024-03-01] MEDS: trazodone 50 mg Tablet PO (20:20)
[2024-03-01] MEDS: gabapentin 100 mg Capsule PO (20:20)
[2024-03-01] MEDS: oxyCODONE 5 mg IR Tab/Cap PO (20:20)
[2024-03-01 21:36] LABS: Glucose Point of Care 359 mg/dL (70-110)
[2024-03-02] VITALS (7 sets, daily range): BP systolic 102–129; BP diastolic 56–68; PULSE 89–112; RESP 14–17; TEMP 36.3–37.3; O2SAT 97–98
[2024-03-02] MEDS: acetaminophen 1,000 MG/100 ML PIGGYBACK 400 MG IV ×2 (02:39→11:37)
[2024-03-02] MEDS: piperacillin-tazobactam 3.375 GM in sodium chloride 0.9% (plus) 50 ML IV (05:03)
[2024-03-02] MEDS: heparin 5,000 unit/mL INJ 1 mL 5000 UNIT SUBCUT (05:03)
[2024-03-02 06:36] LABS: Glucose Point of Care 129 mg/dL (70-110)
[2024-03-02] MEDS: folic acid 1 mg Tablet PO (08:42)
[2024-03-02] MEDS: ferrous gluconate 324 mg Tablet PO (08:42)
[2024-03-02] MEDS: gabapentin 100 mg Capsule PO (08:42)
--- NOTE | 2024-03-02 08:47 | P.PN_ITS ---
Subjective 2 Subjective: Postoperative day 1 status post left below the knee amputation. Patient is doing very well pain has improved no significant complaints. Vitals/I&O/Wt Last Vital Signs Temp 97.6 F 03/02/24 03:33 Pulse 94 03/02/24 06:00 Resp 16 03/02/24 03:33 BP 102/68 03/02/24 08:45 Pulse Ox 98 03/02/24 03:33 O2 Del Method Room Air 03/02/24 03:33 O2 Flow Rate 6 03/01/24 14:38 03/01/24 03/02/24 03/02/24 22:59 06:59 14:59 Intake Total 510 / 560 150 / 710 Output Total 350 / 370 100 / 470 Balance 160 / 190 50 / 240 Weight last 48 hrs Weight 165 lb 8 oz Weight 149 lb Physical Exam 2 Extremity: NARRATIVE EXTREMITY EXAM: Left lower extremity with dressing in place. No evidence of bleeding. Data 03/01/24 05:11 03/01/24 05:11 Micro: Microbiology 03/01/24 00:35 Bacterial Antigens - Final Urine Kidney A&P Assessment and plan (1) Sepsis: (2) Gangrene of left foot: Plan Patient showing good progression after amputation of the left lower extremity. Dressing should stay for 1 whole week before being removed, patient can follow- up as outpatient in my clinic in 2 to 3 weeks for staple removal, he is stable for transfer to nursing facility as needed. Attestations 2 Medical Necessity Statement*: Per medical team Coding Level of Care Code Acute Code for [facility] Diagnoses Sepsis A41.9 Gangrene of left foot I96
[2024-03-02 09:46] LABS: Basophils % 0.2 %; Eosinophils # 0.1 10^3/uL (0.0-0.8); Eosinophils % 0.9 %; Hematocrit 25.2 % (37-53); Lymphocytes # 1.4 10^3/uL (0.8-4.8); Lymphocytes % 9.3 %; Mean Corpuscular HGB Conc 30.2 g/dL (30-55); Mean Corpuscular Hemoglobin 26.6 pg (27-33); Mean Corpuscular Volume 88.1 fl (82-101); Mean Platelet Volume 10.1 fL (7.4-10.4); Monocytes # 1.1 10^3/uL (0.2-0.9); Monocytes % 7.5 %; Neutrophils # 11.71 10^3/uL (1.8-7.7); Neutrophils % 81.2 %; Nucleated Red Blood Cells % 0 %; Platelet Count 168 10^3/cmm (157-399); Red Blood Count 2.86 10^6/uL (3.85-5.65); Red Cell Distribution Width 15.2 % (12.1-15.1); White Blood Count 14.44 10^3/uL (3.29-11.43)
[2024-03-02 10:03] LABS: Alanine Aminotransferase 12 U/L (0-41); Albumin Level 2.7 g/dL (3.5-5.2); Alkaline Phosphatase 86 U/L (40-130); Anion Gap 13.8 (5-19); Aspartate Amino Transferase 17 U/L (0-40); Blood Urea Nitrogen 18 mg/dL (8-23); Calcium 8.4 mg/dL (8.5-10.5); Carbon Dioxide 26 mmol/L (22-29); Chloride 100 mmol/L (98-107); Creatinine Clr Calc Pharmacy 43.1827; Globulin 2.9 g/dL (1.3-4.6); Glucose 158 mg/dL (65-115); Osmolality Calculated 285 mOsm/kg (285-295); Potassium 4.8 mmol/L (3.5-5.1); Sodium 135 mmol/L (136-145); Total Bilirubin 0.3 mg/dL (0.15-1.2); Total Protein 5.6 g/dL (6.6-8.7)
--- NOTE | 2024-03-02 10:10 | P.DS_ITS ---
Discharge Providers Date of Admission: 02/25/24 15:37 Date of Discharge: March 02, 2024 Attending Provider at Admission: Ulises Hyman MD Attending Provider at Discharge: Osiel Santos MD Consults: Surgery: Dr. Brandon Lucero Diagnoses at Discharge Discharge Diagnosis (1) Sepsis: Status: Acute (2) Gangrene of left foot: Status: Acute Reason for Visit Reason for Visit: Left Foot problems Hospital Course Hospital Course Jett Tom is a 84 year old male with no segment past medical history, has not seen a physician in many years was brought into the ER today by his neighbor because of foul-smelling discharge coming from his left foot. As per the patient he had a trauma few months ago but never seek any care. Started having more foul-smelling bloody discharge coming today so came to the ER. Does not complain of any pain. In the ER x-ray was done which was concerning for gas gangrene, surgery was consulted he underwent disarticulation Of left ankle. Seen postoperatively laying comfortably in bed awake and alert saturating well on room air. 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 He underwent disarticulation of his left ankle on admission with surgical team. He was continued on empiric antibiotics during hospitalization with concerns for cellulitis. He was started on antidiabetic and antihypertensive medication during hospitalization. Eventually patient underwent revision of below the knee amputation on 03/01 which she tolerated well. Safe discharge plan were discussed in detail with the patient who requested transfer to SNF for further rehabitation. He is been discharged in hemodynamically stable condition on oral cefdinir for 5 more days. He has been started on new losartan 25 mg oral daily for high blood pressure with goal blood pressure of less than 140/90 mmHg and Januvia 100 mg oral daily. He is to repeat A1c in 6 months. He should follow-up with surgical team as an outpatient. Physical Exam Narrative: General: No acute distress, AO x3 HEENT: PERRLA, pupils bilaterally equal and reactive Chest: Normal vesicular breath sounds, no added sounds, equal good air entry bilaterally CVS: S1-S2 regular, no murmurs, no tachycardia, no gallops, no rubs Abdomen: Soft, nontender, no organomegaly, bowel sounds present Neuro: No focal deficits, no facial deformity, AO x3, power 5/5 in all limbs Extremity: Surgical bandage after amputation of left foot. Discharge Data Studies Completed and Pending Completed Studies During Hospitalization Category Date Time Status XR chest 1V portable [id number] Stat Exams 02/25/24 11:31 Completed XR foot LT min 3V* [id number] Stat Exams 02/25/24 11:28 Completed XR tibia fibula LT 2V [id number] Stat Exams 02/25/24 12:52 Completed Pathology: Surgical [PTH] Routine Pth 02/25/24 15:37 Completed US arterial duplex lower extremity bilat [CV arterial Ultrasound 02/25/24 17:48 [place] [id number]] Routine Pending at discharge Category Date Time Status Blood Culture Stat Lab 02/25/24 13:17 Results Blood Culture Stat Lab 02/28/24 12:28 Results Pathology: Surgical [PTH] Routine Pth 03/01/24 14:27 Received Radiology Impressions Foot X-Ray 02/25/24 11:28 IMPRESSION: 1. Osseous destruction involving the first ray as well as the distal second third and fourth metatarsals almost surely representing acute osteomyelitis. There are also multiple pockets of gas in the soft tissues of the foot with soft tissue edema suggesting infection by gas-forming bacteria. Amputations of the foot as detailed above. Chest X-Ray 02/25/24 11:31 IMPRESSION: 1. No acute cardiopulmonary finding. Tibia/Fibula X-Ray 02/25/24 12:52 IMPRESSION: 1. Negative LEFT tibia and fibula. Duplex Scan Lower Extremity Artery 02/25/24 17:48 IMPRESSION: 1. No evidence of occlusion. 2. Mild waveform dampening in the right posterior tibial artery with diminished MADELINE. Laboratory Results WBC 14.44 10^3/uL (3.29-11.43) H 03/02/24 09:30 RBC 2.86 10^6/uL (3.85-5.65) L 03/02/24 09:30 Hgb 7.60 g/dL (11.27-16.99) L 03/02/24 09:30 Hct 25.2 % (37-53) L 03/02/24 09:30 MCV 88.1 fl (82-101) 03/02/24 09:30 MCH 26.6 pg (27-33) L 03/02/24 09:30 MCHC 30.2 g/dL (30-55) 03/02/24 09:30 RDW 15.2 % (12.1-15.1) H 03/02/24 09:30 Plt Count 168 10^3/cmm (157-399) 03/02/24 09:30 MPV 10.1 fL (7.4-10.4) 03/02/24 09:30 Neut % (Auto) 81.2 % 03/02/24 09:30 Lymph % (Auto) 9.3 % 03/02/24 09:30 Sanders % (Auto) 7.5 % 03/02/24 09:30 Eos % (Auto) 0.9 % 03/02/24 09:30 Baso % (Auto) 0.2 % 03/02/24 09:30 Reticulocyte % (Auto) 1.0 % (0.5-2.0) 02/27/24 02:38 Neut # (Auto) 11.71 10^3/uL (1.8-7.7) H 03/02/24 09:30 Lymph # (Auto) 1.4 10^3/uL (0.8-4.8) 03/02/24 09:30 Sanders # (Auto) 1.1 10^3/uL (0.2-0.9) H 03/02/24 09:30 Eos # (Auto) 0.1 10^3/uL (0.0-0.8) 03/02/24 09:30 Baso # (Auto) 0.0 10^3/uL (0.0-0.1) 03/02/24 09:30 Nucleated RBC % (auto) 0 % 03/02/24 09:30 Nucleated RBCs # 0.0 /100WBC 03/02/24 09:30 ESR 28 mm/hr (0-10) H 02/27/24 02:38 D-Dimer 1.50 ug/mLFEU (0-0.59) H 02/25/24 12:33 Specimen Type Arterial 02/25/24 13:20 Sample Site Radial, right 02/25/24 13:20 ABG pH 7.46 (7.35-7.45) H 02/25/24 13:20 ABG pCO2 29.6 mmHg (35-45) L 02/25/24 13:20 ABG pO2 111.0 mmHg (80.0-100.0) H 02/25/24 13:20 ABG PO2/FiO2 Ratio 528 02/25/24 13:20 ABG HCO3 21.0 mmol/L (22-26) L 02/25/24 13:20 ABG O2 Saturation 98.8 02/25/24 13:20 ABG Base Excess -1.8 mmol/L (-2.0-2.0) 02/25/24 13:20 Ra Test Pos 02/25/24 13:20 A-a O2 Gradient 0.2 mmHg (5-10) L 02/25/24 13:20 Hematocrit 41.0 % (42-52) L 02/25/24 13:20 Hgb O2 Saturation 97.7 % (95-100) 02/25/24 13:20 Carboxyhemoglobin 0.9 %THgb (0.4-20.1) 02/25/24 13:20 Methemoglobin 0.2 % (0.4-1.5) L 02/25/24 13:20 Total Hemoglobin 13.4 g/dL (14-18) L 02/25/24 13:20 Sodium 133.0 mmol/L (131-143) 02/25/24 13:20 Potassium 3.8 mmol/L (3.5-5.0) 02/25/24 13:20 Glucose 233.0 mg/dL (70-115) H 02/25/24 13:20 Ionized Calcium 1.2 mmol/L (1.1-1.4) 02/25/24 13:20 O2 Delivery Device Room air 02/25/24 13:20 FiO2 21.0 % 02/25/24 13:20 Dynamicist ID glc 02/25/24 13:20 Sodium 135 mmol/L (136-145) L 03/02/24 09:30 Potassium 4.8 mmol/L (3.5-5.1) 03/02/24 09:30 Chloride 100 mmol/L (98-107) 03/02/24 09:30 Carbon Dioxide 26 mmol/L (22-29) 03/02/24 09:30 Anion Gap 13.8 (5-19) 03/02/24 09:30 BUN 18 mg/dL (8-23) 03/02/24 09:30 Creatinine 1.3 mg/dL (0.7-1.2) H 03/02/24 09:30 GFR Calculation Not Reportable 03/02/24 09:30 Glucose 158 mg/dL (65-115) H 03/02/24 09:30 POC Glucose 129 mg/dL (70-110) H 03/02/24 06:08 Estimat Average Glucose 148 02/26/24 05:51 Hemoglobin A1c 6.8 % (4.0-6.0) H 02/26/24 05:51 Calculated Osmolality 285 mOsm/kg (285-295) 03/02/24 09:30 Lactic Acid 1.6 mmol/L (0.5-2.2) 02/27/24 02:38 Lactic Acid (Sepsis) 3.1 mmol/L (0.5-2.2) H 02/25/24 17:14 Calcium 8.4 mg/dL (8.5-10.5) L 03/02/24 09:30 Phosphorus 2.4 mg/dL (2.5-4.5) L 02/26/24 05:51 Magnesium 1.8 mg/dL (1.7-2.3) 02/26/24 05:51 Iron 73 ug/dL (59-158) 02/25/24 12:33 TIBC 179 mcg/dl 02/25/24 12:33 % Saturation 40.7 % (20-50) 02/25/24 12:33 Unsat Iron Binding 106 ug/dL (112-347) L 02/25/24 12:33 Ferritin 1690 ng/mL (30-400) H 02/27/24 02:38 Total Bilirubin 0.3 mg/dL (0.15-1.2) 03/02/24 09:30 AST 17 U/L (0-40) 03/02/24 09:30 ALT 12 U/L (0-41) 03/02/24 09:30 Alkaline Phosphatase 86 U/L (40-130) 03/02/24 09:30 Creatine Kinase 23 U/L (39-308) L 02/25/24 12:33 C-Reactive Protein 47.1 mg/L (0.0-4.9) H 02/27/24 02:38 Total Protein 5.6 g/dL (6.6-8.7) L 03/02/24 09:30 Albumin 2.7 g/dL (3.5-5.2) L 03/02/24 09:30 Globulin 2.9 g/dL (1.3-4.6) 03/02/24 09:30 Triglycerides 113 mg/dL (0-150) 02/26/24 05:51 Cholesterol 122 mg/dL (0-200) 02/26/24 05:51 LDL Cholesterol, Calc 71 mg/dL (50-129) 02/26/24 05:51 HDL Cholesterol 28 mg/dL (60-100) L 02/26/24 05:51 LDL/HDL Ratio 2.54 RATIO (0.00-3.22) 02/26/24 05:51 Cholesterol/HDL Ratio 4.36 mg/dL (1.0-5.00) 02/26/24 05:51 Lipase 12 U/L (13-60) L 02/25/24 12:33 Vitamin B12 400 pg/mL (232-1245) 02/25/24 17:14 Folate 2.1 ng/mL (4.5-32.2) L 02/26/24 05:51 Procalcitonin 0.34 ng/mL (0-0.5) 02/26/24 05:51 TSH 2.17 uIU/mL (0.27-4.20) 02/25/24 12:33 Urine Color Yellow (Yellow) 03/01/24 00:35 Urine Appearance Clear (CLEAR) 03/01/24 00:35 Urine pH 5.5 (5-7) 03/01/24 00:35 Ur Specific [place] 1.020 (1.005-1.030) 03/01/24 00:35 Urine Protein 1+ (Negative) A 03/01/24 00:35 Urine Glucose (UA) Trace (Normal) H 03/01/24 00:35 Urine Ketones Negative (Negative) 03/01/24 00:35 Urine Blood Negative (Negative) 03/01/24 00:35 Urine Nitrate Negative (Negative) 03/01/24 00:35 Urine Bilirubin Negative (Negative) 03/01/24 00:35 Urine Urobilinogen 1.0 mg/dL (Negative) 03/01/24 00:35 Ur Leukocyte Esterase Negative (Negative) 03/01/24 00:35 Urine RBC 0-2 /hpf (0-2) 03/01/24 00:35 Urine WBC 0-5 /hpf (0-5) 03/01/24 00:35 Ur Squamous Epith Cells 0-5 /hpf (0-5) 03/01/24 00:35 Amorphous Sediment Not Reportable 03/01/24 00:35 Urine Bacteria None seen /hpf (NONE) 03/01/24 00:35 Hyaline Casts 4.52 /lpf 03/01/24 00:35 Nasal MRSA (PCR) Not detected (Negative) 02/25/24 19:44 Urine Opiates Screen Negative ng/mL (Negative) 03/01/24 00:35 Ur Barbiturates Screen Negative ng/mL (Negative) 03/01/24 00:35 Ur Phencyclidine Scrn Negative ng/mL (Negative) 03/01/24 00:35 Ur Amphetamines Screen Negative ng/mL (Negative) 03/01/24 00:35 U Benzodiazepines Scrn Negative ng/mL (Negative) 03/01/24 00:35 Urine Cocaine Screen Negative ng/mL (Negative) 03/01/24 00:35 U Marijuana (THC) Screen Negative ng/mL (Negative) 03/01/24 00:35 Serum Ketones Negative (Negative) 02/25/24 12:33 Vitals Last Vital Signs Temp 99.1 F 03/02/24 08:00 Pulse 112 H 03/02/24 08:00 Resp 17 03/02/24 08:00 BP 102/68 03/02/24 08:45 Pulse Ox 97 03/02/24 08:00 O2 Del Method Nasal Cannula 03/02/24 08:00 O2 Flow Rate 6 03/01/24 14:38 Discharge Plan Discharge Patient Disposition: Xfer SNF Condition: Stable Prescriptions: New losartan 50 mg Tablet 25 mg PO DAILY 30 Days Qty: 30 0RF gabapentin 100 mg Capsule 100 mg PO TID 30 Days Qty: 90 0RF ferrous gluconate 324 mg (37.5 mg iron) Tablet 324 mg PO BIDWM Qty: 60 0RF (DME) lancets Misc See Rx Instructions .ROUTE .MEDSUPPLY Qty: 100 0RF Rx Instructions: As directed (DME) blood-glucose meter [Blood Glucose Monitoring] Kit See Rx Instructions .ROUTE .MEDSUPPLY Qty: 1 0RF Rx Instructions: As directed (DME) pen needle, diabetic [BD Ultra-Fine Micro Pen Needle] 32 gauge x 1/4 needle See Rx Instructions .ROUTE .MEDSUPPLY Qty: 50 0RF Rx Instructions: As directed cefdinir 300 mg capsule 300 mg PO BID 5 Days Qty: 10 0RF Januvia 100 mg tablet 100 mg PO DAILY Qty: 30 0RF Discharge Orders: Discharge Order (Routine); Ordered 03/02/24 Ordered By: Osiel Santos Referrals: [facility] [Outside] Ulises Hyman MD [Physician] - 1 week (We have notified your physician's clinic of the need for a follow-up appointment to be scheduled. If you have not heard from them within the next 2 business days, please call them directly. ) Ulises Grubbs DPM [Physician] - 2 weeks (Superficial ulcer at the base of her right foot) Patient Instructions: Gabapentin (By mouth), Losartan (By mouth), Below the Knee Amputation (GEN), Opioid Safety Activity Restrictions/Additional Instructions: Maintain surgical dressing for 1 week after surgery. When removed, please cover incision with xeroform, kerlix, and ronda wrap. Maintain that dressing for 1 week. Discharge Attestations Time Spent in Discharge Care*: greater than 30 min Specific Discharge Activities: educating patient, discussing with pcp/other providers, discussing with trimming caser/social workers/dc planners, documenting/other paperwork and evaluating patient/reviewing data Status at Discharge: Cognitive status at discharge: cognitively intact , Behavioral status at discharge: cooperative , Functional status at discharge: uses cane/walker , Overall status at discharge: patient has a new baseline Quality Metrics Clinical Quality Measures [ No reported AMI, CVA or VTE this stay] Coding Level of Care Code 83045 Total time (in minutes) for Discharge: 60 Diagnoses Sepsis A41.9 Gangrene of left foot I96
[2024-03-02 11:21] LABS: Glucose Point of Care 288 mg/dL (70-110)
[2024-03-02] MEDS: insulin lispro 100 unit/1 mL SUBCUT (11:37)
[2024-03-02] MEDS: sodium chloride 0.9% 500 ML 999 ML IV (12:13)
--- NOTE | 2024-03-02 12:45 | PC.SOCIAL ---
IMM Updated. Updated pt on IMM. No questions voiced. Provided pt a copy. Initialed, dated, & timed copy in chart.
[2024-03-02 13:40] LABS: SARS Covid-2 Antigen negative (Negative)
== END 2024-03-02 15:05 | disposition skilled nursing facility (03) | DRG 853 ==
LOC: ER 12:35 → OR 13:34 → MEDSURG 15:35
PROVIDERS: Admitting Provider Surgery; Emergency Provider Family Medicine; Visit Provider Student in an Organized Health Care Education/Training Program
PROC: 0Y6N0Z0 Detachment at Left Foot, Complete, Open Approach (ICD-10-PCS; principal; 2024-02-25 14:45)
PROC: 0Y6J0Z1 Detachment at Left Lower Leg, High, Open Approach (ICD-10-PCS; CPT 27880; principal; 2024-03-01 13:05)
DX: A41.9 Sepsis, unspecified organism (principal); A48.0 Gas gangrene; E87.20 Acidosis, unspecified; L03.116 Cellulitis of left lower limb; M86.172 Other acute osteomyelitis, left ankle and foot; R65.20 Severe sepsis without septic shock; S99.912A Unspecified injury of left ankle, initial encounter; X58.XXXA Exposure to other specified factors, initial encounter; E11.69 Type 2 diabetes mellitus with other specified complication; D64.9 Anemia, unspecified; E53.8 Deficiency of other specified B group vitamins; G54.6 Phantom limb syndrome with pain
CPT/HCPCS: 36415; 36416; 36600; 71045; 73590; 73630; 80048; 80051; 80053; 80061; 80306; 81001; 82009; 82330; 82550; 82607; 82728; 82746; 82805; 82962; 83036; 83540; 83550; 83605; 83690; 83735; 84100; 84145; 84443; 85025; 85045; 85378; 85651; 86140; 86403; 87040; 87150; 87205; 87426; 88307; 88311; 93005; 93925; 94664; 96365; 96367; 96372; 97110; 97161; 97530; 99285; G0378; J0131; J1100; J1644; J1815; J2020; J2270; J2371; J2405; J2470; J2543; J2704; J3010; J3370; J3490; J7030; J7040

== ENCOUNTER → 2024-03-30 14:40 | Outpatient (BNVA) | payer MEDICARE, SELFPAY | PROVIDERS: Visit Provider Surgery | DX: I96 Gangrene, not elsewhere classified; Z98.890 Other specified postprocedural states; Z89.512 Acquired absence of left leg below knee | CPT/HCPCS: 99024 ==

== ENCOUNTER → 2024-04-13 13:23 | Outpatient (BNVA) | payer MEDICARE, SELFPAY | PROVIDERS: Visit Provider Surgery | DX: I96 Gangrene, not elsewhere classified (principal); Z98.890 Other specified postprocedural states | CPT/HCPCS: 99024 ==

== ENCOUNTER → 2024-04-29 10:17 | Outpatient (BNVA) | payer MEDICARE, SELFPAY | DX: E11.9 Type 2 diabetes mellitus without complications (principal) | CPT/HCPCS: 80053; 83036; 85025 ==

== ENCOUNTER → 2024-05-11 13:49 | Outpatient (BNVA) | payer MEDICARE, SELFPAY | PROVIDERS: Visit Provider Surgery | DX: I96 Gangrene, not elsewhere classified (principal) | CPT/HCPCS: 99213 ==

== ENCOUNTER 2024-07-01 09:44 | Outpatient (CLI) | payer MEDICARE, SELFPAY ==
--- NOTE | 2024-07-01 10:15 | USR_ITS ---
PROCEDURE INFORMATION: Exam: US Right Noninvasive Physiologic Study of the Lower Extremity Arteries, Limited Exam date and time: 07/01/2024 9:45 AM Age: 84 years old Clinical indication: Pain; Leg, lower; Right; Additional info: Pad TECHNIQUE: Imaging protocol: Right Limited bilateral noninvasive physiologic studies of lower extremity arteries. Waveforms were obtained and evaluated. Images were documented and archived. Exam is limited. COMPARISON: No relevant prior studies available. FINDINGS: Right Ankle-Brachial Index: MADELINE at the right calf is 1.0, at posterior tibial 0.61, at the ankle 0.67, and at the digit 0.60. Left Ankle-Brachial Index: Not obtained. US/CV segpressure [place] [id number] IMPRESSION: Evidence of PAD.
== END 2024-07-01 09:45 | disposition home or self-care (01) ==
LOC: RAD 09:45
PROVIDERS: Visit Provider Podiatrist Foot & Ankle Surgery
DX: I73.9 Peripheral vascular disease, unspecified (principal)
CPT/HCPCS: 93922

== ENCOUNTER → 2024-08-19 10:22 | Outpatient (BNVA) | payer MEDICARE, SELFPAY | DX: E11.9 Type 2 diabetes mellitus without complications (principal); I10 Essential (primary) hypertension | CPT/HCPCS: 80053; 80061; 83036; 85025 ==

== ENCOUNTER → 2024-12-09 10:02 | Outpatient (BNVA) | payer MEDICARE, SELFPAY | DX: E11.9 Type 2 diabetes mellitus without complications (principal); I10 Essential (primary) hypertension | CPT/HCPCS: 80053; 83036 ==

== ENCOUNTER 2025-02-15 10:04 | Outpatient (RCR) | payer MEDICARE, SELFPAY | END 2025-03-15 23:59 | disposition home or self-care (01) | LOC: SPT 10:04 | DX: Z89.512 Acquired absence of left leg below knee (principal) | CPT/HCPCS: 97110; 97116; 97161; 97530 ==